=== PATIENT | female | born 1985 | race Caucasian/White ===

== ENCOUNTER 2019-11-26 23:19 | Emergency (ER) | payer OTHER ==
[2019-11-26 23:24] VITALS: BP 129/82; PULSE 85; RESP 20; TEMP 98.4
--- NOTE | 2019-11-27 00:27 | ED ---
General Adult HPI - General Chief complaint: Needlestick/Exposure Stated complaint: Needle stick at work Time Seen by Provider: 11/26/19 23:34 Source: patient Mode of arrival: ambulatory Limitations: no limitations - History of Present Illness Initial comments: Patient is a 34-year-old female presenting to emergency Department with a chief complaint of a needle stick exposure. 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 Patient reports the source is known. Patient reports that needlestick location was on her right thumb. Patient states that she immediately began washing the site and was pushing blood out. Patient is unaware if she had had the vaccinations. - Related Data Home Medications Medication Instructions Recorded Confirmed buPROPion [Wellbutrin] 100 mg PO BID 11/26/19 11/26/19 Allergies Allergy/AdvReac Type Severity Reaction Status Date / Time No Known Allergies Allergy Verified 11/26/19 23:25 Review of Systems ROS Statement: Those systems with pertinent positive or pertinent negative responses have been documented in the HPI. ROS Other: All systems not noted in ROS Statement are negative. Past Medical History Past Medical History: Asthma Additional Past Medical History / Comment(s): migraines History of Any Multi-Drug Resistant Organisms: None Reported Past Surgical History: Orthopedic Surgery Past Psychological History: Depression Smoking Status: Current every day smoker Past Alcohol Use History: None Reported Past Drug Use History: None Reported General Exam Limitations: no limitations General appearance: alert, in no apparent distress Head exam: Present: atraumatic, normocephalic, normal inspection Eye exam: Present: normal appearance, PERRL, EOMI Pupils: Present: normal accommodation ENT exam: Present: normal exam Neck exam: Present: normal inspection, full ROM Respiratory exam: Present: normal lung sounds bilaterally Cardiovascular Exam: Present: regular rate, normal rhythm, normal heart sounds Extremities exam: Present: normal inspection (Needle stick exposure to the right thumb. No active bleeding at this time.) Back exam: Present: normal inspection, full ROM Neurological exam: Present: alert, oriented X3 Psychiatric exam: Present: normal affect, normal mood Skin exam: Present: warm, dry, intact, normal color Course Vital Signs 11/26/19 23:22 Temperature 98.4 F Pulse Rate 85 Respiratory 20 Rate Blood Pressure 129/82 O2 Sat by Pulse 100 Oximetry Medical Decision Making - Medical Decision Making Patient is a 34-year-old female presenting to emergency Department with a chief complaint of needle stick exposure. Signed out testing for HIV and hepatitis for sent out. Patient will be contacted in about 3 days with the results. Patient is unaware if she had her hepatitis vaccinations. Strict return parameters were thoroughly discussed with patient is understanding and agreeable. Case discussed with physician. Disposition Clinical Impression: Needlestick injury accident with exposure to body fluid Disposition: HOME SELF-CARE Condition: Stable Instructions (If sedation given, give patient instructions): Hepatitis B (DC) Additional Instructions: You will be contacted in 3 days with the results of the testing. Please return to emergency department if symptoms worsen. Is patient prescribed a controlled substance at d/c from ED?: No Referrals: David Vicente MD [Primary Care Provider] - 1-2 days Time of Disposition: 00:31
[2019-11-27 11:53] LABS: Hepatitis B Surface AB- Quant 502.6 mIU/mL; Hepatitis B Surface Antibody Reactive (Non-Reactive); Hepatitis B Surface Antigen Non-Reactive (Non-Reactive); Hepatitis C IgG Antibody Non-Reactive (Non-Reactive)
[2019-11-27 12:51] LABS: HIV 1 AB Non-Reactive (Non-Reactive); HIV 2 AB Non-Reactive (Non-Reactive); HIV AB P24 Non-Reactive (Non-Reactive); HIV P24 AG Non-Reactive (Non-Reactive)
== END 2019-11-27 00:42 | disposition home or self-care (01) ==
LOC: EC 23:19
DX: Z77.21 Contact with and (suspected) exposure to potentially hazardous body fluids (principal); F32.9 Major depressive disorder, single episode, unspecified; F17.200 Nicotine dependence, unspecified, uncomplicated; Z79.899 Other long term (current) drug therapy; W46.0XXA Contact with hypodermic needle, initial encounter; Y99.0 Civilian activity done for income or pay
CPT/HCPCS: 36415; 86706; 86803; 87340; 87390; 99283

== ENCOUNTER 2022-02-17 09:25 | Inpatient (IN) | payer OTHER ==
[2022-02-17] MEDS ORDERED: SODIUM CHLORIDE 0.9% 1,000 ML IV STA (10:08)
[2022-02-17 10:17] LABS: Glucose,Whole Blood 85 mg/dL (75-99)
--- NOTE | 2022-02-17 10:51 | XR ---
EXAMINATION TYPE: XR chest 2V DATE OF EXAM: 02/17/2022 COMPARISON: NONE HISTORY: Altered mental status, left-sided facial numbness and slurred speech TECHNIQUE: Frontal and lateral views of the chest are obtained. FINDINGS: There is no focal air space opacity, pleural effusion, or pneumothorax seen. The cardiac silhouette size is within normal limits. The osseous structures are intact. IMPRESSION: No acute cardiopulmonary process.
--- NOTE | 2022-02-17 10:56 | CT ---
EXAMINATION TYPE: CT brain wo con for TPA DATE OF EXAM: 02/17/2022 COMPARISON: CT brain 08/25/2016 HISTORY: slurred speech and left side weakness. CT DLP: 1085 mGycm Automated exposure control for dose reduction was used. Helical imaging through the brain FINDINGS: There is no acute intracranial hemorrhage, mass effect, or midline shift identified. Brain density is remarkable for interval development of low-attenuation within the level of the left frontal white ma tter, ill-defined area of low-attenuation has developed. Some vague periventricular low density is ag ain noted in the right occipital lobe and also in the periventricular right matter on the right. The ventricles and sulci are within normal limits in size. The globes are intact and the visualized sinu ses are clear. IMPRESSION: Interval development of abnormal low attenuation in the left frontal white matter, correlate for poss ible demyelinating disease or ischemic event, brain MRI likely would be of benefit.
[2022-02-17 10:57] LABS: Basophils % (A) 1 %; Eosinophils # (A) 0.1 k/uL (0-0.7); Eosinophils % (A) 2 %; HCT 38.9 % (34.0-46.0); HGB 13.2 gm/dL (11.4-16.0); Lymphocytes # (A) 1.7 k/uL (1.0-4.8); Lymphocytes % (A) 37 %; MCH 33.5 pg (25.0-35.0); MCHC 33.9 g/dL (31.0-37.0); MCV 98.9 fL (80.0-100.0); Mean Platelet Volume 8.6; Monocytes # (A) 0.3 k/uL (0-1.0); Monocytes % (A) 6 %; Neutrophils # (A) 2.4 k/uL (1.3-7.7); Neutrophils % (A) 53 %; Platelet Count 183 k/uL (150-450); RBC 3.94 m/uL (3.80-5.40); RDW 12.8 % (11.5-15.5); WBC 4.6 k/uL (3.8-10.6)
[2022-02-17 11:02] LABS: Appearance,Urine Clear (Clear); Bilirubin,Urine Negative (Negative); Blood,Urine Negative (Negative); Color,Urine Light Yellow; Glucose,Urine (UA) Negative (Negative); Ketones,Urine Negative (Negative); Leukocyte Esterase,Urine Negative (Negative); Nitrite,Urine Negative (Negative); PH, Urine 7.5 (5.0-8.0); Protein,Urine Negative (Negative); Specific Gravity,Urine 1.005 (1.001-1.035); Urobilinogen,Urine <2.0 mg/dL (<2.0)
--- NOTE | 2022-02-17 11:07 | CT ---
EXAMINATION TYPE: CT angio head neck DATE OF EXAM: 02/17/2022 COMPARISON: Head CT and a HISTORY: 36-year-old female slurred speech and left sided weakness TECHNIQUE: Contiguous axial scanning of the head and neck performed with IV Contrast, patient injecte d with 65mL mL of Isovue 370. Coronal/sagittal MIP reconstructions performed. CT DLP: 342.5 mGycm Automated exposure control for dose reduction was used. FINDINGS: NECK: Conventional arch vessel branching anatomy. Dense contrast limits evaluation of the V1 segment right vertebral artery. Otherwise, the vertebral a rteries are codominant patent throughout the course. Right common and right internal carotid arteries are widely patent by NASCET criteria. Left common and left internal carotid arteries are widely patent by NASCET criteria. HEAD: Somewhat small caliber to the bilateral vertebral and basilar arteries. Bilateral posterior communica ting arteries are visualized in posterior circulation is patent. Dural venous sinuses are patent. Internal carotid arteries and remainder of the anterior circulation is patent. No aneurysmal change is seen. IMPRESSION: 1. NECK: WIDELY PATENT CAROTID AND VERTEBRAL ARTERIES OF THE NECK. 2. 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 OTHERWISE, NO LARGE VESSEL INTRACRANIAL ARTERIAL OCCLUSION, SIGNIFICANT STENOSIS, OR ANEURYSMAL FRANCES NGE IS SEEN.
[2022-02-17 11:12] LABS: Prothrombin Time 10.6 sec (9.0-12.0)
[2022-02-17 11:15] LABS: ALT 11 U/L (4-34); AST 18 U/L (14-36); African American GFR (CKD) >90 (>60 ml/min/1.73 sqM); Albumin 3.7 g/dL (3.5-5.0); Alkaline Phosphatase 52 U/L (38-126); Anion Gap 7 mmol/L; Blood Urea Nitrogen 14 mg/dL (7-17); Calcium 8.7 mg/dL (8.4-10.2); Carbon Dioxide 25 mmol/L (22-30); Chloride 106 mmol/L (98-107); Glucose 80 mg/dL (74-99); Non-African American GFR(CKD) >90 (>60 ml/min/1.73 sqM); Potassium 4.4 mmol/L (3.5-5.1); Sodium 138 mmol/L (137-145); Total Bilirubin 0.6 mg/dL (0.2-1.3); Total Protein 6.5 g/dL (6.3-8.2)
[2022-02-17 11:16] LABS: Amphetamine Screen,Urine Not Detected (NotDetected); Barbiturate Screen,Urine Not Detected (NotDetected); Benzodiazepines Screen,Urine Not Detected (NotDetected); Cocaine Screen,Urine Not Detected (NotDetected); Methadone Screen, Urine Not Detected (NotDetected); Opiate Screen,Urine Not Detected (NotDetected); Oxycodone Screen, Urine Not Detected (NotDetected); Phencyclidine Screen,Urine Not Detected (NotDetected); Tricyclic Antidepressant,Urine Not Detected (NotDetected); Urn Cannabinoid Scrn Not Detected (NotDetected)
[2022-02-17] MEDS ORDERED: ASPIRIN 325 MG TAB PO STA (12:05)
--- NOTE | 2022-02-17 12:58 | ED ---
General Adult HPI - General Chief complaint: Neuro Symptoms/Deficit Stated complaint: Lt side weakness/slurred speech Time Seen by Provider: 02/17/22 09:38 Source: patient, RN notes reviewed, old records reviewed Mode of arrival: ambulatory Limitations: no limitations - History of Present Illness Initial comments: Patient is a 36-year-old female with past medical history remarkable for asthma who presents emergency Department complaining of neurological deficits. Patient states that beginning Monday, she began having slurred speech as well as left- sided lower facial droop. She is having symptoms recur on and off since summertime. Remotely, patient was being worked up for MS, but states she did not complete the workup. She is drooling, and states she is having a difficult time swallowing as well. Has no other acute complaints at this time. Denies chest pain, shortness breath, abdominal pain, nausea, vomiting. His no other acute point at this time. - Related Data Home Medications Medication Instructions Recorded Confirmed Rosanil Cleanser 1 applic TOPICAL DAILY 02/17/22 02/17/22 buPROPion HCL [Forfivo Xl] 450 mg PO DAILY 02/17/22 02/17/22 metroNIDAZOLE 0.75% CREAM 1 applic TOPICAL BID PRN 02/17/22 02/17/22 [Metrocream 0.75%] Allergies Allergy/AdvReac Type Severity Reaction Status Date / Time No Known Allergies Allergy Verified 02/17/22 10:14 Review of Systems ROS Statement: Those systems with pertinent positive or pertinent negative responses have been documented in the HPI. Review of Systems: CONST: Denies fever EYES: Denies blurry vision ENT: Denies nasal congestion C/V: Denies Chest pain RESP: Denies shortness of breath GI: Denies abdominal pain : Denies dysuria SKIN: Denies rash. MSK: Denies joint pain. NEURO: Denies headache ROS Other: All systems not noted in ROS Statement are negative. Past Medical History Past Medical History: Asthma Additional Past Medical History / Comment(s): migraines History of Any Multi-Drug Resistant Organisms: None Reported Past Surgical History: Orthopedic Surgery Past Psychological History: Depression Smoking Status: Current every day smoker, Vaper Past Alcohol Use History: None Reported Past Drug Use History: None Reported General Exam - General Exam Comments Initial Comments: General: Appears in no acute distress. HEAD: Normal with no signs of head trauma. EYES: PERRLA, EOMI, conjunctiva normal, no discharge. Pupils 3 mm and equal bilaterally. ENT: Hearing grossly intact, normal oropharynx. RESPIRATORY: Clear breath sounds bilaterally. No wheezes, rales, or rhonchi. C/V: Regular rate and rhythm. S1 and S2 auscultated, no edema, peripheral pulses 2+ and intact throughout ABD: Abd is soft, nontender, nondistended EXT: Normal range of motion, no obvious deformity SKIN: No rashes or lesions observed on exposed skin. NEURO: Alert and oriented 4. NIH is 3, 2 points for left lower facial droop, 1 point for dysarthria. GCS is 15. No other focal deficits. Limitations: no limitations Course Vital Signs 02/17/22 02/17/22 02/17/22 09:30 10:07 11:54 Temperature 97.9 F Pulse Rate 78 77 61 Respiratory 18 18 18 Rate Blood Pressure 113/78 107/67 115/72 O2 Sat by Pulse 100 100 99 Oximetry 02/17/22 13:03 Temperature Pulse Rate 74 Respiratory 18 Rate Blood Pressure 111/71 O2 Sat by Pulse 99 Oximetry Medical Decision Making - Medical Decision Making Based on the patient's presentation and physical exam, I am concerned for the neurological etiology for her current symptoms. Cannot rule out CVA versus MS at this time. There have been ongoing for multiple days, greater than 24 hours. We will obtain the stroke imaging no activation of the stroke pager will be made. She was in agreement this plan. She will likely be admitted.Patient is not a TPA candidate as it has been multiple days since onset of symptoms. Laboratory studies are unremarkable including a indeterminate troponin. Chest x-ray shows no acute cardio primary process. CT brain reveals findings concerning for possible demyelinating disease in the left frontal white matter. CT angiogram revealed no acute intracranial process. No stenosis. EKG showed no signs of acute ischemia. On reevaluation, the patient remains unchanged. I updated her on the results of her labs and imaging. I would like to administer the patient aspirin, as well as have her admitted for neurology evaluation likely MRI. She was in agreement this plan. I did speak with Dr. Stone of neurology who agreed to the consult with the plan. Patient normally would be admitted to observation based on her presenting clinical diagnosis. Patient's PCP admits to EMS normally, however patient will be admitted to [place] [facility] physician group due to the observation admission. I did speak with the [place] [facility] physician, Dr. Lucero who refused the admission as he believes that the patient will likely be her greater than 2 days due to concern for MS and likely MS flare. He recommended inpatient admission. Therefore I did speak with [facility], Dr. allison who did accept the patient. Patient was still admitted to observation at this time. - Lab Data Result diagrams: 02/17/22 10:11 02/17/22 10:11 Lab Results 02/17/22 02/17/22 02/17/22 Range/Units 10:06 10:11 10:11 WBC 4.6 (3.8-10.6) k/uL RBC 3.94 (3.80-5.40) m/uL Hgb 13.2 (11.4-16.0) gm/dL Hct 38.9 (34.0-46.0) % MCV 98.9 (80.0-100.0) fL MCH 33.5 (25.0-35.0) pg MCHC 33.9 (31.0-37.0) g/dL RDW 12.8 (11.5-15.5) % Plt Count 183 (150-450) k/uL MPV 8.6 Neutrophils % 53 % Lymphocytes % 37 % Monocytes % 6 % Eosinophils % 2 % Basophils % 1 % Neutrophils # 2.4 (1.3-7.7) k/uL Lymphocytes # 1.7 (1.0-4.8) k/uL Monocytes # 0.3 (0-1.0) k/uL Eosinophils # 0.1 (0-0.7) k/uL Basophils # 0.0 (0-0.2) k/uL PT 10.6 (9.0-12.0) sec INR 1.0 (<1.2) APTT 27.0 (22.0-30.0) sec Sodium (137-145) mmol/L Potassium (3.5-5.1) mmol/L Chloride (98-107) mmol/L Carbon Dioxide (22-30) mmol/L Anion Gap mmol/L BUN (7-17) mg/dL Creatinine (0.52-1.04) mg/dL Est GFR (CKD-EPI)AfAm (>60 ml/min/1.73 sqM) Est GFR (CKD-EPI)NonAf (>60 ml/min/1.73 sqM) Glucose (74-99) mg/dL POC Glucose (mg/dL) 85 (75-99) mg/dL POC Glu [employer] [place] Calcium (8.4-10.2) mg/dL Total Bilirubin (0.2-1.3) mg/dL AST (14-36) U/L ALT (4-34) U/L Alkaline Phosphatase (38-126) U/L Troponin I (0.000-0.034) ng/mL Total Protein (6.3-8.2) g/dL Albumin (3.5-5.0) g/dL Urine Color Urine Appearance (Clear) Urine pH (5.0-8.0) Ur Specific [place] (1.001-1.035) Urine Protein (Negative) Urine Glucose (UA) (Negative) Urine Ketones (Negative) Urine Blood (Negative) Urine Nitrite (Negative) Urine Bilirubin (Negative) Urine Urobilinogen (<2.0) mg/dL Ur Leukocyte Esterase (Negative) Urine HCG, Qual (Not Detectd) Urine Opiates Screen (NotDetected) Ur Oxycodone Screen (NotDetected) Urine Methadone Screen (NotDetected) Ur Propoxyphene Screen (NotDetected) Ur Barbiturates Screen (NotDetected) U Tricyclic Antidepress (NotDetected) Ur Phencyclidine Scrn (NotDetected) Ur Amphetamines Screen (NotDetected) U Methamphetamines Scrn (NotDetected) U Benzodiazepines Scrn (NotDetected) Urine Cocaine Screen (NotDetected) U Marijuana (THC) Screen (NotDetected) 02/17/22 02/17/22 02/17/22 Range/Units 10:11 10:11 10:11 WBC (3.8-10.6) k/uL RBC (3.80-5.40) m/uL Hgb (11.4-16.0) gm/dL Hct (34.0-46.0) % MCV (80.0-100.0) fL MCH (25.0-35.0) pg MCHC (31.0-37.0) g/dL RDW (11.5-15.5) % Plt Count (150-450) k/uL MPV Neutrophils % % Lymphocytes % % Monocytes % % Eosinophils % % Basophils % % Neutrophils # (1.3-7.7) k/uL Lymphocytes # (1.0-4.8) k/uL Monocytes # (0-1.0) k/uL Eosinophils # (0-0.7) k/uL Basophils # (0-0.2) k/uL PT (9.0-12.0) sec INR (<1.2) APTT (22.0-30.0) sec Sodium 138 (137-145) mmol/L Potassium 4.4 (3.5-5.1) mmol/L Chloride 106 (98-107) mmol/L Carbon Dioxide 25 (22-30) mmol/L Anion Gap 7 mmol/L BUN 14 (7-17) mg/dL Creatinine 0.75 (0.52-1.04) mg/dL Est GFR (CKD-EPI)AfAm >90 (>60 ml/min/1.73 sqM) Est GFR (CKD-EPI)NonAf >90 (>60 ml/min/1.73 sqM) Glucose 80 (74-99) mg/dL POC Glucose (mg/dL) (75-99) mg/dL POC Glu [employer] ID Calcium 8.7 (8.4-10.2) mg/dL Total Bilirubin 0.6 (0.2-1.3) mg/dL AST 18 (14-36) U/L ALT 11 (4-34) U/L Alkaline Phosphatase 52 (38-126) U/L Troponin I (0.000-0.034) ng/mL Total Protein 6.5 (6.3-8.2) g/dL Albumin 3.7 (3.5-5.0) g/dL Urine Color Light Yellow Urine Appearance Clear (Clear) Urine pH 7.5 (5.0-8.0) Ur Specific [place] 1.005 (1.001-1.035) Urine Protein Negative (Negative) Urine Glucose (UA) Negative (Negative) Urine Ketones Negative (Negative) Urine Blood Negative (Negative) Urine Nitrite Negative (Negative) Urine Bilirubin Negative (Negative) Urine Urobilinogen <2.0 (<2.0) mg/dL Ur Leukocyte Esterase Negative (Negative) Urine HCG, Qual Not Detected (Not Detectd) Urine Opiates Screen Not Detected (NotDetected) Ur Oxycodone Screen Not Detected (NotDetected) Urine Methadone Screen Not Detected (NotDetected) Ur Propoxyphene Screen Not Detected (NotDetected) Ur Barbiturates Screen Not Detected (NotDetected) U Tricyclic Antidepress Not Detected (NotDetected) Ur Phencyclidine Scrn Not Detected (NotDetected) Ur Amphetamines Screen Not Detected (NotDetected) U Methamphetamines Scrn Not Detected (NotDetected) U Benzodiazepines Scrn Not Detected (NotDetected) Urine Cocaine Screen Not Detected (NotDetected) U Marijuana (THC) Screen Not Detected (NotDetected) 02/17/22 Range/Units 10:11 WBC (3.8-10.6) k/uL RBC (3.80-5.40) m/uL Hgb (11.4-16.0) gm/dL Hct (34.0-46.0) % MCV (80.0-100.0) fL MCH (25.0-35.0) pg MCHC (31.0-37.0) g/dL RDW (11.5-15.5) % Plt Count (150-450) k/uL MPV Neutrophils % % Lymphocytes % % Monocytes % % Eosinophils % % Basophils % % Neutrophils # (1.3-7.7) k/uL Lymphocytes # (1.0-4.8) k/uL Monocytes # (0-1.0) k/uL Eosinophils # (0-0.7) k/uL Basophils # (0-0.2) k/uL PT (9.0-12.0) sec INR (<1.2) APTT (22.0-30.0) sec Sodium (137-145) mmol/L Potassium (3.5-5.1) mmol/L Chloride (98-107) mmol/L Carbon Dioxide (22-30) mmol/L Anion Gap mmol/L BUN (7-17) mg/dL Creatinine (0.52-1.04) mg/dL Est GFR (CKD-EPI)AfAm (>60 ml/min/1.73 sqM) Est GFR (CKD-EPI)NonAf (>60 ml/min/1.73 sqM) Glucose (74-99) mg/dL POC Glucose (mg/dL) (75-99) mg/dL POC Glu [employer] ID Calcium (8.4-10.2) mg/dL Total Bilirubin (0.2-1.3) mg/dL AST (14-36) U/L ALT (4-34) U/L Alkaline Phosphatase (38-126) U/L Troponin I 0.015 (0.000-0.034) ng/mL Total Protein (6.3-8.2) g/dL Albumin (3.5-5.0) g/dL Urine Color Urine Appearance (Clear) Urine pH (5.0-8.0) Ur Specific [place] (1.001-1.035) Urine Protein (Negative) Urine Glucose (UA) (Negative) Urine Ketones (Negative) Urine Blood (Negative) Urine Nitrite (Negative) Urine Bilirubin (Negative) Urine Urobilinogen (<2.0) mg/dL Ur Leukocyte Esterase (Negative) Urine HCG, Qual (Not Detectd) Urine Opiates Screen (NotDetected) Ur Oxycodone Screen (NotDetected) Urine Methadone Screen (NotDetected) Ur Propoxyphene Screen (NotDetected) Ur Barbiturates Screen (NotDetected) U Tricyclic Antidepress (NotDetected) Ur Phencyclidine Scrn (NotDetected) Ur Amphetamines Screen (NotDetected) U Methamphetamines Scrn (NotDetected) U Benzodiazepines Scrn (NotDetected) Urine Cocaine Screen (NotDetected) U Marijuana (THC) Screen (NotDetected) - EKG Data -: EKG Interpreted by Me EKG Comments: 12-lead Electrocardiogram Interpretation Note EKG was reviewed and interpreted by myself. 12-lead ECG performed at 0945 is interpreted by me as revealing normal sinus rhythm at a rate of 66 beats per minute. [place] is normal. [place] intervals 171 ms, QRS duration is 96 ms, QTc is 415 ms.. There were no ST or T wave abnormalities to suggest myocardial ischemia or injury. R wave progression across the precordium was satisfactory. By my interpretation this EKG is non-diagnostic for acute ischemia. Disposition Clinical Impression: Facial droop Narrative: CVA vs. MS flare Disposition: ADMITTED IP TO THIS HOSP Condition: Stable Time of Disposition: 11:54
--- NOTE | 2022-02-17 13:38 | P.HPIM ---
History of Present Illness This is a pleasant 36 years old female with past medical history of asthma and migraine, patient presents because of slurred speech that started 3-4 days ago, patient states this happened to her twice during the summer which resolved spontaneously after one month and one week respectively. Also she has difficulties swallowing her food with drooling some saliva. And she noticed that her lip also deviated to the right side. However patient denies headache, no dizziness, no weakness in one site, no numbness, no bolus problems but she states when she walks downstairs she has some difficulty keeping her bones. She has been seen neurologist many years ago and she was suspected to have MS but she did not follow through, at that time she has some issues with her legs. She denies chest pain or dyspnea. No fever. No change in urine or bowel habits. No dysuria or urgency. She just finished her menstrual cycle, I offered test but she declines. Vitals are stable and labs are unremarkable including CBC, BMP, liver enzymes, urine analysis, urine test, urine drug screen CT of the brain: Interval development of abnormal low attenuation in the left frontal white matter correlate for possible demyelinating disease or ischemic event. Brain MRI likely would be of benefit Chest x-ray: No acute process. CT angiography: Somewhat small caliber to the bilateral vertebral and basilar arteries. Bilateral posterior rectum indicating arteries are visualized and posterior circulation is patent. Dural sinuses are patent. Neck widely patent carotid and vertebral arteries of the neck. Review of Systems CONSTITUTIONAL: No fever, no malaise, no fatigue. HEENT: No recent visual problems or hearing problems. Denied any sore throat. CARDIOVASCULAR: No orthopnea, PND, no palpitations, no syncope. PULMONARY: No shortness of breath, no cough, no hemoptysis. GASTROINTESTINAL: No diarrhea, no nausea, no vomiting, no abdominal pain. Normoactive bowel sounds. NEUROLOGICAL: No headaches, no weakness, no numbness. HEMATOLOGICAL: Denies any bleeding or petechiae. GENITOURINARY: Denies any burning micturition, frequency, or urgency. MUSCULOSKELETAL/RHEUMATOLOGICAL: Denies any joint pain, swelling, or any muscle pain. ENDOCRINE: Denies any polyuria or polydipsia. Past Medical History Past Medical History: Asthma Additional Past Medical History / Comment(s): migraines History of Any Multi-Drug Resistant Organisms: None Reported Past Surgical History: Orthopedic Surgery Past Psychological History: Depression Smoking Status: Current every day smoker, Vaper Past Alcohol Use History: None Reported Past Drug Use History: None Reported Medications and Allergies Home Medications Medication Instructions Recorded Confirmed Type Rosanil Cleanser 1 applic TOPICAL DAILY 02/17/22 02/17/22 History buPROPion HCL [Forfivo Xl] 450 mg PO DAILY 02/17/22 02/17/22 History metroNIDAZOLE 0.75% CREAM 1 applic TOPICAL BID PRN 02/17/22 02/17/22 History [Metrocream 0.75%] Allergies Allergy/AdvReac Type Severity Reaction Status Date / Time No Known Allergies Allergy Verified 02/17/22 10:14 Physical Exam Vitals: Vital Signs Temp Pulse Resp BP Pulse Ox 02/17/22 13:03 74 18 111/71 99 02/17/22 11:54 61 18 115/72 99 02/17/22 10:07 77 18 107/67 100 02/17/22 09:30 97.9 F 78 18 113/78 100 Intake and Output 02/16/22 02/17/22 02/17/22 22:59 06:59 14:59 Other: Weight 56.699 kg GENERAL: The patient is alert and oriented x3, not in any acute distress. Well developed, well nourished. HEENT: Pupils are round and equally reacting to light. EOMI. No scleral icterus. No conjunctival pallor. Normocephalic, atraumatic. No pharyngeal erythema. No thyromegaly. CARDIOVASCULAR: S1 and S2 present. No murmurs, rubs, or gallops. PULMONARY: Chest is clear to auscultation, no wheezing or crackles. ABDOMEN: Soft, nontender, nondistended, normoactive bowel sounds. No palpable organomegaly. MUSCULOSKELETAL: No joint swelling or deformity. EXTREMITIES: No cyanosis, clubbing, or pedal edema. -NEUROLOGICAL: Critical nerves are grossly intact. She has mild deviation of the lower lip to the right side. Tongue and uvula midline. Motor is 5/5 and sensation is intact in all extremities. Meningeal signs are absent SKIN: No rashes. No petechiae Results CBC & Chem 7: 02/17/22 10:11 02/17/22 10:11 Assessment and Plan Assessment: Patient with slurred speech, difficulty swallowing and left lip/face weakness.CT of the brain: Interval development of abnormal low attenuation in the left frontal white matter correlate for possible demyelinating disease or ischemic e vent. Nicotine dependence patient counseled to quit and she agrees. She declines nicotine patch History of migraine History of asthma, not active tissue Plan: This Is a pleasant 36 years old female who presents with new neurological symptoms suspicious for stroke versus demyelinating disease Continue with neuro check Neurology consult Further testing per neurology service Continue with speech evaluation and PT/OT Labs and medication were reviewed.. Continue same treatment. Continue with symptomatic treatment. Resume home medication. Monitor lytes and vitals. DVT and GI prophylaxis. Further recommendations depends on the clinical course of the patient DVT prophylaxis: Mechanical GI Prophylaxis: Pepcid PT/OT: Pending Prognosis is guarded
--- NOTE | 2022-02-17 17:56 | P.CNNES ---
History of Present Illness Consult date: 02/17/22 Requesting physician: David Barnett Reason for Consult: CVA versus demyelinating disease History of Present Illness: Patient is a 36-year-old right-handed female who came to the hospital because of developing slurred speech on Monday, 2 days ago. Yesterday on Monday she noticed difficulty swallowing. She was noticing that she was drooling out of left side of the mouth. Also noticed that her left lower lip was not moving as it usually does. She also protruded her tongue and it was deviating to the left. She got concerned therefore decided to come to the hospital, and arrived in the ER at 9:25 AM today. Patient also has noticed that she often smiles when she does not intend to smile. On arrival her blood pressure was 113/78, pulse is 70 temperature 97.9. Blood test shows normal CBC, PT/PTT, normal CMP. Troponin negative. UA negative, urine drug screen negative. HCG negative. Computed tomography scan of head showed interval development of abnormal low attenuation in the left frontal whit e matter, correlate for possible demyelinating disease or ischemic event. MRI brain would be of benefit. I personally reviewed computed tomography scan of the head and agree with the findings. The lesion appears somewhat chronic in nature. CTA of the neck showed widely patent carotid and vertebral arteries of the neck. CTA of the head showed somewhat small caliber to the bilateral vertebral and basilar arteries on a congenital basis. Otherwise no large vessel intracranial arterial occlusion, significant stenosis or aneurysmal change. EKG shows normal sinus rhythm. Chest x-ray with no acute cardiac pulmonary process. Patient further states that last summer she had an episodes in which she had slurred speech, that lasted for about 1 month. She had another episode of slurred speech in late fall, that lasted for a week. She did not seek medical attention, felt was stress related or lack of sleep or dehydration. Patient states that in about 10/2014 she saw a neurologist and there was some concern of MS. Patient never followed through with a neurologist. Patient denies any symptoms related to her extremities. Patient states that for last 1 year she feels her legs are getting weak, shaky when she is going downstairs. She feels as if her legs would go out, knee or ankle would give out. It involves both legs, but left is worse. Denies any history of vertigo, or loss of vision. Patient does have history of migraines since she was age 19. They used to occur once a month, associated with aura consisting of blurred vision for about 20 minutes to an hour. The migraine would last all day. She gets nausea, occasional vomiting. She does get light and noise sensitivity with her migraine. Patient denies any history of optic neuritis. Patient admits to having not good balance for a long time, but has become slightly worse in the last couple years. No falls. Patient denies any family history of MS. Patient has smoked half pack per day since age 15. She denies hypertension or diabetes or any alcohol use. Patient does not take any control pills. She has 2 children. She also Vapes. Review of Systems As mentioned above in HPI. All other 14 point review systems are reviewed and unremarkable. Past Medical History Past Medical History: Asthma Additional Past Medical History / Comment(s): migraines History of Any Multi-Drug Resistant Organisms: None Reported Past Surgical History: Orthopedic Surgery Past Psychological History: Depression Smoking Status: Current every day smoker, Vaper Past Alcohol Use History: None Reported Past Drug Use History: None Reported Medications and Allergies Home Medications Medication Instructions Recorded Confirmed Type Rosanil Cleanser 1 applic TOPICAL DAILY 02/17/22 02/17/22 History buPROPion HCL [Forfivo Xl] 450 mg PO DAILY 02/17/22 02/17/22 History metroNIDAZOLE 0.75% CREAM 1 applic TOPICAL BID PRN 02/17/22 02/17/22 History [Metrocream 0.75%] Allergies Allergy/AdvReac Type Severity Reaction Status Date / Time No Known Allergies Allergy Verified 02/17/22 10:14 Physical Examination - Vital Signs Vital Signs: Vital Signs Temp Pulse Resp BP Pulse Ox 02/17/22 16:03 67 18 97 02/17/22 15:03 68 18 116/77 98 02/17/22 14:03 71 18 105/76 99 02/17/22 13:03 74 18 111/71 99 02/17/22 11:54 61 18 115/72 99 02/17/22 10:07 77 18 107/67 100 02/17/22 09:30 97.9 F 78 18 113/78 100 Intake and Output 02/17/22 02/17/22 02/17/22 06:59 14:59 22:59 Other: Weight 56.699 kg Patient is a young female, in no acute distress. Patient is alert awake oriented to time place and person. Speech is very mildly dysarthric and language functions are normal. Patient can name and repeat very well. Attention, concentration and fund of knowledge is adequate. On cranial examination, pupils are equal, round and reacting to light, visual manzano are full on confrontation, extraocular muscles are intact with no nystagmus. Patient has left facial weakness, central type. Her tongue protrudes slightly to the left. The strength of the tongue under the cheek however was equal on either side. Palatal elevation and sensation normal, hearing and shoulder shrug normal, facial sensation normal. Shoulder shrug normal. On muscle strength testing, there is no pronator drift and the strength is n ormal in arms and legs distally and proximally. Deep tendon reflexes are symmetric, 2 at the biceps and brachioradialis, 2+ to 3 at the knees, 2 ankles and plantars downgoing bilaterally. Sensory to touch is equal with no neglect. Cerebellar function showed no ataxia for rznjgi-wh-wtum testing. No ataxia for nngi-ju-mxdl testing. No dysdiadochokinesia. Tone and bulk of muscles normal. Gait deferred. On general examination, there is no carotid bruit or murmur, S1-S2 audible. Abdomen is soft nontender. No organomegaly, bowel sounds present. Chest is clear. Peripheral pulses are present. No edema. Results - Laboratory Findings CBC and BMP: 02/17/22 10:11 02/17/22 10:11 Assessment and Plan Assessment: * 36-year-old female presented with 2 day history of slurred speech and 1 day history of mild dysphagia and drooling. Patient had similar episode of slurred speech twice in the past, once lasting for a month and another time lasted for a week. Examination revealed mild left facial weakness, central type and slight tongue deviation to the left. Computed tomography scan of the head revealed a chronic white matter lesion in the left frontal region. This is likely not the cause of current symptoms, as the symptoms are on the ipsilateral side. Rule out MS, CVA appears less likely. Guillory's Palsy less likely. * Tobacco use * History of migraine headaches Plan: * MRI of the brain with and without contrast rule out MS. Rule out CVA. * Detailed blood tests as per order section. * Patient has received aspirin 325 mg in the ER. * Recommended tobacco cessation. * Telemetry monitoring. * Further management based upon above test results. * We will follow. Thank you for the consult.
--- NOTE | 2022-02-18 07:49 | P.PN ---
Subjective This is a pleasant 36 years old female with past medical history of asthma and migraine, patient presents because of slurred speech that started 3-4 days ago, patient states this happened to her twice during the summer which resolved spontaneously after one month and one week respectively. Also she has difficulties swallowing her food with drooling some saliva. And she noticed that her lip also deviated to the right side. However patient denies headache, no dizziness, no weakness in one site, no numbness, no bolus problems but she states when she walks downstairs she has some difficulty keeping her bones. She has been seen neurologist many years ago and she was suspected to have MS but she did not follow through, at that time she has some issues with her legs. She denies chest pain or dyspnea. No fever. No change in urine or bowel fajardo bits. No dysuria or urgency. She just finished her menstrual cycle, I offered test but she declines. Vitals are stable and labs are unremarkable including CBC, BMP, liver enzymes, urine analysis, urine test, urine drug screen CT of the brain: Interval development of abnormal low attenuation in the left frontal white matter correlate for possible demyelinating disease or ischemic event. Brain MRI likely would be of benefit Chest x-ray: No acute process. CT angiography: Somewhat small caliber to the bilateral vertebral and basilar arteries. Bilateral posterior rectum indicating arteries are visualized and posterior circulation is patent. Dural sinuses are patent. Neck widely patent carotid and vertebral arteries of the neck. 02/18/2022 Patient still has the same symptoms of slurred speech and left facial droop and difficulty swallowing last night. No other neurological deficits. No other complaint. Medically stable. Blood tests ordered by neurologist still pending. MRI of the brain is pending. Patient states she is not claustrophobic Objective - Vital Signs Vital signs: Vital Signs Temp 98.4 F 02/18/22 04:21 Pulse 69 02/18/22 04:21 Resp 16 02/18/22 04:21 BP 102/52 02/18/22 04:21 Pulse Ox 97 02/18/22 04:21 Intake & Output 02/17/22 02/18/22 02/18/22 18:59 06:59 18:59 Weight 56.699 kg Other: Voiding Method Toilet # Voids 1 - Exam GENERAL: The patient is alert and oriented x3, not in any acute distress. Well developed, well nourished. HEENT: Pupils are round and equally reacting to light. EOMI. No scleral icterus. No conjunctival pallor. Normocephalic, atraumatic. No pharyngeal erythema. No thyromegaly. CARDIOVASCULAR: S1 and S2 present. No murmurs, rubs, or gallops. PULMONARY: Chest is clear to auscultation, no wheezing or crackles. ABDOMEN: Soft, nontender, nondistended, normoactive bowel sounds. No palpable organomegaly. MUSCULOSKELETAL: No joint swelling or deformity. EXTREMITIES: No cyanosis, clubbing, or pedal edema. -NEUROLOGICAL: Critical nerves are grossly intact. She has mild deviation of the lower lip to the right side. Tongue and uvula midline. Motor is 5/5 and sensation is intact in all extremities. Meningeal signs are absent SKIN: No rashes. No petechiae - Labs CBC & Chem 7: 02/17/22 10:11 02/17/22 10:11 Labs: Abnormal Lab Results - Last 24 Hours (Table) 02/17/22 Range/Units 10:10 Procalcitonin <0.02 L (0.02-0.09) ng/mL Assessment and Plan Assessment: Patient with slurred speech, difficulty swallowing and left lip/face weakness.CT of the brain: Interval development of abnormal low attenuation in the left frontal white matter correlate for possible demyelinating disease or ischemic event. Nicotine dependence patient counseled to quit and she agrees. She declines nicotine patch History of migraine History of asthma, not active tissue Plan: This Is a pleasant 36 years old female who presents with new neurological symptoms suspicious for stroke versus demyelinating disease Continue with neuro check Neurology consult recommended MRI of the brain and blood test, see lab section Continue with speech evaluation and PT/OT Labs and medication were reviewed.. Continue same treatment. Continue with symptomatic treatment. Resume home medication. Monitor lytes and vitals. DVT and GI prophylaxis. Further recommendations depends on the clinical course of the patient DVT prophylaxis: Mechanical GI Prophylaxis: Pepcid PT/OT: Pending Prognosis is guarded
[2022-02-18] MEDS: HEPARIN SODIUM,PORCINE/PF 5,000 UNIT/0.5 ML SYRINGE SQ SCH ×2 (08:25→20:11)
[2022-02-18] MEDS: buPROPion XL 150 MG TAB.ER.24H PO SCH (08:25)
[2022-02-18] MEDS ORDERED: FAMOTIDINE 20 MG/2 ML VIAL IV SCH (09:00)
--- NOTE | 2022-02-18 15:14 | MR ---
EXAMINATION TYPE: MR brain wo/w con DATE OF EXAM: 02/18/2022 COMPARISON: CT dated 02/17/2022 HISTORY: CVA vs MS, dysarthria and dysphagia TECHNIQUE: Multiplanar, multisequence images of the brain and brainstem is performed without and with IV contras t, utilizing 6 mL intravenous Gadavist . FINDINGS: Scattered bilateral cerebral periventricular and subcortical white matter foci of bright T2 and FLAIR signal, mainly seen perpendicular to the lateral ventricles giving a Weber's fingers appearance. Th e largest is seen in the right murdock radiata measuring up to 2.1 cm with bright diffusion signal and incomplete ring enhancement in the postcontrast images. No definite juxtacortical, corpus callosum o r infratentorial lesion identified No intracranial hemorrhage or acute infarct. No midline shift, ventriculomegaly or herniation. Unrema rkable rey-white matter differentiation, basal cisterns, sella and CP angles. No gross space-occupyi ng lesion, vasogenic edema or mass effect. Preserved signal void pattern of major intracranial vessels with slightly small basilar artery. Paten t major intracranial vessels. No other area of intracranial abnormal enhancement. Unremarkable orbits . Clear visualized paranasal sinuses and mastoid air cells. Unremarkable calvarial bones IMPRESSION: Considering the patient's age and presentation, the above-described findings are highly suggestive of a demyelinating disease like multiple sclerosis with active lesion in the right murdock radiata as de scribed above. Atypical demyelinating disease cannot be excluded. Recommend clinical correlation, neurology consulta tion and further workup. Further MRI of the spinal cord should be also considered.
[2022-02-18 16:39] LABS: Chol/HDL Ratio 2.46 Ratio; LDL Cholesterol,Calculated 89.1 mg/dL (0.0-131.0); VLDL Calculation 14.26 mg/dL (5.00-40.00)
[2022-02-18] MEDS: CYANOCOBALAMIN 1,000 MCG/ML 1 ML VIAL IM SCH (18:13)
[2022-02-18] MEDS: methylPREDNISolone SOD SUCCIN 1,000 MG in SODIUM CHLORIDE 0.9% 250 ML IVPB SCH (18:13)
[2022-02-18] MEDS: CHOLECALCIFEROL 125 MCG (5000 IU) TABLET PO SCH (18:13)
[2022-02-18] MEDS: FAMOTIDINE 20 MG TAB PO SCH (20:11)
[2022-02-18] MEDS: ACETAMINOPHEN TAB 325 MG TAB PO PRN (23:17)
[2022-02-19] MEDS: HEPARIN SODIUM,PORCINE/PF 5,000 UNIT/0.5 ML SYRINGE SQ SCH ×2 (08:26→20:17)
[2022-02-19] MEDS: CYANOCOBALAMIN 1,000 MCG/ML 1 ML VIAL IM SCH (08:26)
[2022-02-19] MEDS: FAMOTIDINE 20 MG TAB PO SCH ×2 (08:27→20:17)
[2022-02-19] MEDS: CHOLECALCIFEROL 125 MCG (5000 IU) TABLET PO SCH (08:27)
[2022-02-19] MEDS: buPROPion XL 150 MG TAB.ER.24H PO SCH (08:28)
[2022-02-19] MEDS: ACETAMINOPHEN TAB 325 MG TAB PO PRN (09:00)
--- NOTE | 2022-02-19 09:40 | P.PN ---
Subjective Progress Note Date: 02/18/22 Patient was seen for follow-up. Patient feels her symptoms are slightly getting worse. Patient feels the left lower lip is getting slightly more crooked. No other neurological symptoms. No symptoms attributed to the extremities. Telemetric monitoring showing sinus rhythm, sinus bradycardia between 40s to 100 range. Objective - Vital Signs Vital signs: Vital Signs Temp 98.2 F 02/19/22 08:00 Pulse 72 02/19/22 08:00 Resp 16 02/19/22 08:00 BP 113/71 02/19/22 08:00 Pulse Ox 95 02/19/22 08:00 Intake & Output 02/18/22 02/19/22 02/19/22 18:59 06:59 18:59 Intake Total 1380 118 Balance 1380 118 Intake: Oral 1380 118 Other: # Voids 1 - Exam Patient is a young female, in no acute distress. Patient is alert awake oriented to time place and person. Speech is very mildly dysarthric and language functions are normal. Patient can name and repeat very well. Attention, concentration and fund of knowledge is adequate. On cranial examination, pupils are equal, round and reacting to light, visual manzano are full on confrontation, extraocular muscles are intact with no nystagmus. Patient has left facial weakness, central type, which is predominantly involving the left lower lip region. Her tongue protrudes slightly to the left (appears slightly worse). The strength of the tongue under the cheek however was equal on either side. Palatal elevation and sensation normal, hearing and shoulder shrug normal. Facial sensation decreased for pinprick involving the all 3 region of the trigeminal nerve. However the fine touch is decreased only involving the left maxillary and mandibular region. Shoulder shrug normal. On muscle strength testing, there is no pronator drift and the strength is normal in arms and legs distally and proximally. Deep tendon reflexes are symmetric, 2 at the biceps and brachioradialis, 2+ to 3 at the knees, 2 ankles and plantars downgoing bilaterally. Sensory to touch is equal with no neglect. Cerebellar function showed no ataxia for mrjvji-fg-svpi testing. No ataxia for qsmt-uk-mdpi testing. No dysdiadochokinesia. Tone and bulk of muscles normal. Gait deferred. On general examination, there is no carotid bruit or murmur, S1-S2 audible. Abdomen is soft nontender. No organomegaly, bowel sounds present. Chest is clear. Peripheral pulses are present. No edema. - Labs CBC & Chem 7: 02/17/22 10:11 02/17/22 10:11 Labs: Abnormal Lab Results - Last 24 Hours (Table) 02/18/22 Range/Units 08:12 HDL Cholesterol 70.60 H (40.00-60.00) mg/dL Vitamin D 25-Hydroxy 26.0 L (30.0-100.0) ng/mL Assessment and Plan Assessment: * 36-year-old female presented with 2 day history of slurred speech and 1 day history of mild dysphagia and drooling. Patient had similar episode of slurred speech twice in the past, once lasting for a month and another time lasted for a week. Examination revealed mild left facial weakness, central type and slight tongue deviation to the left. MRI of the brain with and without contrast revealed multiple white matter lesions, one of them enhancing involving the right subcortical region, highly suggestive of multiple sclerosi s. * B12, folate and vitamin D deficiency. * Tobacco use * History of migraine headaches Plan: * MRI of the brain with and without contrast revealed no acute ischemic stroke. Scattered bilateral cerebral periventricular and subcortical white matter foci of bright T2 was inferior signal, mainly seen perpendicular to the lateral ventricles giving her Weber's fingers appearance. The largest is seen in the right murdock radiata measuring up to 2.1 cm with bright diffusion signal and incomplete ring enhancement in the post contrast images. No definite juxtacortical, corpus callosum or infratentorial lesion identified. Constellation of these findings are highly suggestive of a demyelinating disease like multiple sclerosis. * I had a very prolonged discussion with the patient about results of MRI of the brain. Patient has multiple nonenhancing and only one ring-enhancing lesion noted on the MRI of brain. Patient has clinical history of at least 2 prior episodes of significant neurological symptoms that lasted for 1 week to a month. Her disease is spread in time and space. This is consistent with clinically definite multiple sclerosis. Patient feels her current neurological symptoms are getting worse. Therefore we will start Solu-Medrol 1 g IVPB daily for 3-5 days. Patient states that she has an upcoming interview on Monday at [facility], therefore wants to have infusion only for 3 days. She will be discharged on tapering down dose of prednisone thereafter. Patient was informed that she needs to follow-up with a neurologist for further management of MS. She may benefit from lumbar puncture, just to have more evidence of MS, although the diagnosis appears quite straightforward. Patient will need to be started on disease modifying medication as soon as she completes her course of steroids. * B12 borderline 309, folate borderline 7.40. Vitamin D slightly low 26, TSH is normal 1.32. Hemoglobin A1c normal 5.1. Lipid panel with cholesterol 174, LDL 89, HDL 70 and triglycerides 71. Sjogren's antibodies negative, JOSÉ MIGUEL negative, RPR negative. Patient will be started on B12, folate and vitamin D replacement. * Recommended tobacco cessation. Time with Patient: Greater than 30
--- NOTE | 2022-02-19 11:32 | P.PN ---
Subjective This is a pleasant 36 years old female with past medical history of asthma and migraine, patient presents because of slurred speech that started 3-4 days ago, patient states this happened to her twice during the summer which resolved spontaneously after one month and one week respectively. Also she has difficulties swallowing her food with drooling some saliva. And she noticed that her lip also deviated to the right side. However patient denies headache, no dizziness, no weakness in one site, no numbness, no bolus problems but she states when she walks downstairs she has some difficulty keeping her bones. She has been seen neurologist many years ago and she was suspected to have MS but she did not follow through, at that time she has some issues with her legs. She denies chest pain or dyspnea. No fever. No change in urine or bowel fajardo bits. No dysuria or urgency. She just finished her menstrual cycle, I offered test but she declines. Vitals are stable and labs are unremarkable including CBC, BMP, liver enzymes, urine analysis, urine test, urine drug screen CT of the brain: Interval development of abnormal low attenuation in the left frontal white matter correlate for possible demyelinating disease or ischemic event. Brain MRI likely would be of benefit Chest x-ray: No acute process. CT angiography: Somewhat small caliber to the bilateral vertebral and basilar arteries. Bilateral posterior rectum indicating arteries are visualized and posterior circulation is patent. Dural sinuses are patent. Neck widely patent carotid and vertebral arteries of the neck. 02/18/2022 Patient still has the same symptoms of slurred speech and left facial droop and difficulty swallowing last night. No other neurological deficits. No other complaint. Medically stable. Blood tests ordered by neurologist still pending. MRI of the brain is pending. Patient states she is not claustrophobic 02/19/2022 Patient has similar neurological symptoms with left-sided facial droop with some swallowing difficulty. MRI is consistent with demyelinating disease and patient was diagnosed with multiple sclerosis and started on IV Solu-Medrol 1000 mg daily 3 days. Patient needed to be discharged on tapering steroids and follow-up with the neurologist as an outpatient Patient has some restless leg yesterday and some leg pain. She is already on subcu heparin however we will check ultrasound of the leg Objective - Vital Signs Vital signs: Vital Signs Temp 98.2 F 02/19/22 08:00 Pulse 72 02/19/22 08:00 Resp 16 02/19/22 08:00 BP 113/71 02/19/22 08:00 Pulse Ox 95 02/19/22 08:00 Intake & Output 02/18/22 02/19/22 02/19/22 18:59 06:59 18:59 Intake Total 1380 118 Balance 1380 118 Intake: Oral 1380 118 Other: # Voids 1 - Exam GENERAL: The patient is alert and oriented x3, not in any acute distress. Well developed, well nourished. HEENT: Pupils are round and equally reacting to light. EOMI. No scleral icterus. No conjunctival pallor. Normocephalic, atraumatic. No pharyngeal erythema. No thyromegaly. CARDIOVASCULAR: S1 and S2 present. No murmurs, rubs, or gallops. PULMONARY: Chest is clear to auscultation, no wheezing or crackles. ABDOMEN: Soft, nontender, nondistended, normoactive bowel sounds. No palpable organomegaly. MUSCULOSKELETAL: No joint swelling or deformity. EXTREMITIES: No cyanosis, clubbing, or pedal edema. -NEUROLOGICAL: Critical nerves are grossly intact. She has mild deviation of the lower lip to the right side. Tongue and uvula midline. Motor is 5/5 and sensation is intact in all extremities. Meningeal signs are absent SKIN: No rashes. No petechiae - Labs CBC & Chem 7: 02/17/22 10:11 02/17/22 10:11 Labs: Abnormal Lab Results - Last 24 Hours (Table) 02/18/22 Range/Units 08:12 HDL Cholesterol 70.60 H (40.00-60.00) mg/dL Vitamin D 25-Hydroxy 26.0 L (30.0-100.0) ng/mL Assessment and Plan Assessment: NEW Diagnosis of multiple sclerosis. Patient with slurred speech, difficulty swallowing and left lip/face weakness bilateral leg pain, most likely musculoskeletal. Rule out DVT Nicotine dependence patient counseled to quit and she agrees. She declines nicotine patch History of migraine History of asthma, not active tissue Plan: This Is a pleasant 36 years old female who presents with new neurological symptoms suspicious for stroke versus demyelinating disease Continue with Solu-Medrol 1000 daily 3 days and continue with tapered steroids upon discharge Follow-up with the neurologist as an outpatient in 1-2 weeks Neurology consult on the case Check lower extremity ultrasound Continue with speech evaluation and PT/OT Labs and medication were reviewed.. Continue same treatment. Continue with symptomatic treatment. Resume home medication. Monitor lytes and vitals. DVT and GI prophylaxis. Further recommendations depends on the clinical course of the patient DVT prophylaxis: Mechanical GI Prophylaxis: Pepcid PT/OT: Pending Prognosis is guarded
[2022-02-19] MEDS: methylPREDNISolone SOD SUCCIN 1,000 MG in SODIUM CHLORIDE 0.9% 250 ML IVPB SCH (15:28)
--- NOTE | 2022-02-19 15:44 | US ---
EXAMINATION TYPE: US venous doppler duplex LE DATE OF EXAM: 02/19/2022 2:32 PM COMPARISON: NONE CLINICAL HISTORY: leg swelling. Leg swelling. No hx of DVT. SIDE PERFORMED: Bilateral TECHNIQUE: The lower extremity deep venous system is examined utilizing real time linear array sonog anthony with graded compression, doppler sonography and color-flow sonography. VESSELS IMAGED: Common Femoral Vein Deep Femoral Vein Greater Saphenous Vein * Femoral Vein Popliteal Vein Small Saphenous Vein * Proximal Calf Veins (* superficial vessels) Right Leg: No evidence of DVT in veins imaged. Left Leg: No evidence of DVT in veins imaged. IMPRESSION: No evidence of deep vein thrombosis in both legs.
[2022-02-19] MEDS: IBUPROFEN 400 MG TAB PO PRN ×2 (16:08→22:48)
--- NOTE | 2022-02-20 08:39 | P.PN ---
Subjective Progress Note Date: 02/19/22 Patient was seen for follow-up. Patient feels her symptoms are no changes compared to yesterday. Patient has noticed that for quite some time, she has been having difficulty controlling her laugh. One time it was a very serious topic going on and she kept on smiling. Patient has noticed that she has been yawning more frequently even while talking, which has never happened before. Patient states that her legs have been bothering, feels somewhat uncomfortable. Objective - Vital Signs Vital signs: Vital Signs Temp 98.2 F 02/19/22 08:00 Pulse 72 02/19/22 08:00 Resp 16 02/19/22 08:00 BP 113/71 02/19/22 08:00 Pulse Ox 95 02/19/22 08:00 Intake & Output 02/18/22 02/19/22 02/19/22 18:59 06:59 18:59 Intake Total 1380 118 Balance 1380 118 Intake: Oral 1380 118 Other: # Voids 1 - Exam Patient is a young female, in no acute distress. Patient is alert awake oriented to time place and person. Speech is mild to moderately dysarthric and language functions are normal. Patient can name and repeat very well. Attention, concentration and fund of knowledge is adequate. On cranial nerve examination, pupils are equal, round and reacting to light, visual manzano are full on confrontation, extraocular muscles are intact with no nystagmus. Patient has left facial weakness, central type, which is predominantly involving the left lower lip region. Her tongue protrudes slightly to the left stable as compared to yesterday. The strength of the tongue under the cheek however was equal on either side. Palatal elevation and sensation normal, hearing and shoulder shrug normal. Facial sensation decreased for pinprick involving the all 3 region of the trigeminal nerve. However the fine touch is decreased only involving the left maxillary and mandibular region. Shoulder shrug normal. On muscle strength testing, there is no pronator drift and the strength is normal in arms and legs distally and proximally. Deep tendon reflexes are symmetric, 2 at the biceps and brachioradialis, 2+ to 3 at the knees, 2 ankles and plantars downgoing bilaterally. Sensory to touch is equal with no neglect. Cerebellar function showed no ataxia for [id number]-[id number]-syth testing. No ataxia for bkfl-ti-ovze testing. No dysdiadochokinesia. Tone and bulk of muscles normal. Gait deferred. On general examination, there is no carotid bruit or murmur, S1-S2 audible. Abdomen is soft nontender. No organomegaly, bowel sounds present. Chest is c lear. Peripheral pulses are present. No edema. 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 * B12, folate and vitamin D deficiency. * Tobacco use * History of migraine headaches Plan: * Continue Solu-Medrol 1 g IVPB daily for 3-5 days. Patient tolerating it well with no side effects. Patient wishes to receive Solu-Medrol only for 3 days, as she has to go for interview to [place] on Monday. Patient will receive prednisone tapering doses after 3 days of Solu-Medrol IV. * MRI of the brain with and without contrast revealed no acute ischemic stroke. Scattered bilateral cerebral periventricular and subcortical white matter foci of bright T2 was inferior signal, mainly seen perpendicular to the lateral ventricles giving her Weber's fingers appearance. The largest is seen in the right murdock radiata measuring up to 2.1 cm with bright diffusion signal and incomplete ring enhancement in the post contrast images. No definite juxtacortical, corpus callosum or infratentorial lesion identified. Constellation of these findings are highly suggestive of a demyelinating disease like multiple sclerosis. * Patient was informed that she needs to follow-up with a neurologist for further management of MS. She may benefit from lumbar puncture, just to have more evidence of MS, although the diagnosis appears quite straightforward. Patient will need to be started on disease modifying medication as soon as she completes her course of steroids. * B12 borderline 309, folate borderline 7.40. Vitamin D slightly low 26, TSH is normal 1.32. Hemoglobin A1c normal 5.1. Lipid panel with cholesterol 174, LDL 89, HDL 70 and triglycerides 71. Sjogren's antibodies negative, JOSÉ MIGUEL negative, RPR negative. Patient will be started on B12, folate and vitamin D replacement. * Recommended complete tobacco cessation.
[2022-02-20] MEDS: CHOLECALCIFEROL 125 MCG (5000 IU) TABLET PO SCH (10:05)
[2022-02-20] MEDS: FAMOTIDINE 20 MG TAB PO SCH ×2 (10:05→21:21)
[2022-02-20] MEDS: buPROPion XL 150 MG TAB.ER.24H PO SCH (10:05)
[2022-02-20] MEDS: polyethylene glycoL 3350 17 GM POWD.PACK PO SCH (10:06)
[2022-02-20] MEDS: HEPARIN SODIUM,PORCINE/PF 5,000 UNIT/0.5 ML SYRINGE SQ SCH ×2 (10:06→21:21)
--- NOTE | 2022-02-20 11:35 | P.PN ---
Subjective This is a pleasant 36 years old female with past medical history of asthma and migraine, patient presents because of slurred speech that started 3-4 days ago, patient states this happened to her twice during the summer which resolved spontaneously after one month and one week respectively. Also she has difficulties swallowing her food with drooling some saliva. And she noticed that her lip also deviated to the right side. However patient denies headache, no dizziness, no weakness in one site, no numbness, no bolus problems but she states when she walks downstairs she has some difficulty keeping her bones. She has been seen neurologist many years ago and she was suspected to have MS but she did not follow through, at that time she has some issues with her legs. She denies chest pain or dyspnea. No fever. No change in urine or bowel fajardo bits. No dysuria or urgency. She just finished her menstrual cycle, I offered test but she declines. Vitals are stable and labs are unremarkable including CBC, BMP, liver enzymes, urine analysis, urine test, urine drug screen CT of the brain: Interval development of abnormal low attenuation in the left frontal white matter correlate for possible demyelinating disease or ischemic event. Brain MRI likely would be of benefit Chest x-ray: No acute process. CT angiography: Somewhat small caliber to the bilateral vertebral and basilar arteries. Bilateral posterior rectum indicating arteries are visualized and posterior circulation is patent. Dural sinuses are patent. Neck widely patent carotid and vertebral arteries of the neck. 02/18/2022 Patient still has the same symptoms of slurred speech and left facial droop and difficulty swallowing last night. No other neurological deficits. No other complaint. Medically stable. Blood tests ordered by neurologist still pending. MRI of the brain is pending. Patient states she is not claustrophobic 02/19/2022 Patient has similar neurological symptoms with left-sided facial droop with some swallowing difficulty. MRI is consistent with demyelinating disease and patient was diagnosed with multiple sclerosis and started on IV Solu-Medrol 1000 mg daily 3 days. Patient needed to be discharged on tapering steroids and follow-up with the neurologist as an outpatient Patient has some restless leg yesterday and some leg pain. She is already on subcu heparin however we will check ultrasound of the leg 02/20/2022 Patient clinically states the same with similar left-sided facial droop and some difficulty with swallowing however she is able to tolerate diet, she had her breakfast this morning with no difficulty. No nausea vomiting. No chest pain or dyspnea or other complaint. Her lip and improved and upon of the leg is negative for DVT. And hemodynamically stable. TSH is normal at 1.3, poorcalcitonin is less than 0.02. Vitamin D is low at 26 which has been replaced. B12 is low normal at 309 we'll give replacement for 3 days. With recommendation to recheck it as an outpatient. She remains on therapeutic dose of IV Solu-Medrol 1000 mg daily Objective - Vital Signs Vital signs: Vital Signs Temp 98.3 F 02/20/22 08:00 Pulse 71 02/20/22 08:00 Resp 18 02/20/22 08:00 BP 102/58 02/20/22 08:00 Pulse Ox 100 02/20/22 08:00 Intake & Output 02/19/22 02/20/22 02/20/22 18:59 06:59 18:59 Intake Total 646 260 Balance 646 260 Intake: Oral 646 260 Other: # Voids 3 1 - Exam GENERAL: The patient is alert and oriented x3, not in any acute distress. Well developed, well nourished. HEENT: Pupils are round and equally reacting to light. EOMI. No scleral icterus. No conjunctival pallor. Normocephalic, atraumatic. No pharyngeal erythema. No thyromegaly. CARDIOVASCULAR: S1 and S2 present. No murmurs, rubs, or gallops. PULMONARY: Chest is clear to auscultation, no wheezing or crackles. ABDOMEN: Soft, nontender, nondistended, normoactive bowel sounds. No palpable organomegaly. MUSCULOSKELETAL: No joint swelling or deformity. EXTREMITIES: No cyanosis, clubbing, or pedal edema. -NEUROLOGICAL: Critical nerves are grossly intact. She has mild deviation of the lower lip to the right side. Tongue and uvula midline. Motor is 5/5 and sensation is intact in all extremities. Meningeal signs are absent SKIN: No rashes. No petechiae - Labs CBC & Chem 7: 02/17/22 10:11 02/17/22 10:11 Assessment and Plan Assessment: NEW Diagnosis of multiple sclerosis. Patient with slurred speech, difficulty swallowing and left lip/face weakness bilateral leg pain, most likely musculoskeletal. Rule out DVT Nicotine dependence patient counseled to quit and she agrees. She declines nicotine patch History of migraine History of asthma, not active tissue Low vitamin D Borderline vitamin B-12 Plan: This Is a pleasant 36 years old female who presents with new neurological symptoms suspicious for stroke versus demyelinating disease Continue with Solu-Medrol 1000 daily 3 days and continue with tapered steroids upon discharge Follow-up with the neurologist as an outpatient in 1-2 weeks Neurology consult on the case X-ray with a Place and vitamin D and B12. We recommend to check vitamin B12 in 1 month with PCP Continue with speech evaluation and PT/OT Labs and medication were reviewed.. Continue same treatment. Continue with symptomatic treatment. Resume home medication. Monitor lytes and vitals. DVT and GI prophylaxis. Further recommendations depends on the clinical course of the patient DVT prophylaxis: Mechanical GI Prophylaxis: Pepcid PT/OT: Pending Prognosis is guarded
[2022-02-20] MEDS: methylPREDNISolone SOD SUCCIN 1,000 MG in SODIUM CHLORIDE 0.9% 250 ML IVPB SCH ×2 (15:43→19:22)
[2022-02-20] MEDS: CYANOCOBALAMIN 1,000 MCG/ML 1 ML VIAL IM SCH (15:43)
--- NOTE | 2022-02-21 08:56 | P.PN ---
Subjective Progress Note Date: 02/20/22 Patient was seen for follow-up. Patient feels her symptoms are slightly better. Her legs have improved. Last night it was hurting, but today it's better. She gets discomfort feeling in both thighs, but pointing to the lateral and medial region of the thighs and then extends down to calf to the feet. Patient states that for the last 3 years she has issues with bowel movement as she gets constipated and has to take laxative. Denies any urinary incontinence, leaking or urgency. Patient has informed yesterday that that she has noticed that for quite some time, she has been having difficulty controlling her laugh. One time it was a very serious topic going on and she kept on smiling. Patient has noticed that she has been yawning more frequently even while talking, which has never happened before. Objective - Vital Signs Vital signs: Vital Signs Temp 98.3 F 02/20/22 08:00 Pulse 71 02/20/22 08:00 Resp 18 02/20/22 08:00 BP 102/58 02/20/22 08:00 Pulse Ox 100 02/20/22 08:00 Intake & Output 02/19/22 02/20/22 02/20/22 18:59 06:59 18:59 Intake Total 646 260 Balance 646 260 Intake: Oral 646 260 Other: # Voids 3 1 - Exam Patient is a young female, in no acute distress. Patient is alert awake oriented to time place and person. Speech is mildly dysarthric and language functions are normal. Patient can name and repeat very well. Attention, concentration and fund of knowledge is adequate. On cranial nerve examination, pupils are equal, round and reacting to light, visual manzano are full on confrontation, extraocular muscles are intact with no nystagmus. Patient has left facial weakness, central type, which is pre dominantly involving the left lower lip region. It appears better as compared to yesterday. Her tongue protrudes slightly to the left stable as compared to yesterday. The strength of the tongue under the cheek however was equal on either side. Palatal elevation and sensation normal, hearing and shoulder shrug normal. Facial sensation decreased for pinprick involving the all 3 region of the trigeminal nerve. However the fine touch is decreased only involving the left maxillary and mandibular region. Shoulder shrug normal. On muscle strength testing, there is no pronator drift and the strength is normal in arms and legs distally and proximally. Deep tendon reflexes are symmetric, 2 at the biceps and brachioradialis, 2+ to 3 at the knees, 2 ankles and plantars downgoing bilaterally. Sensory to touch is equal with no neglect. Cerebellar function showed no ataxia for jdigor-uj-srtr testing. No ataxia for btom-kf-vzwi testing. No dysdiadochokinesia. Tone and bulk of muscles normal. Gait deferred. On general examination, there is no carotid bruit or murmur, S1-S2 audible. A bdomen is soft nontender. No organomegaly, bowel sounds present. Chest is clear. Peripheral pulses are present. No edema. 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 * B12, folate and vitamin D deficiency. * Tobacco use * History of migraine headaches Plan: * Patient has agreed to stay for 2 more days to take total of 5 days for completion of Solu-Medrol 1 g IVPB daily. Today is day #3. Patient tolerating it well with no side effects. * Patient wants to proceed with lumbar puncture to evaluate for oligoclonal bands. We will consult anesthesia. * MRI of the cervical and thoracic spine with and without contrast to evaluate for the extent of the disease. * MRI of the brain with and without contrast revealed no acute ischemic stroke. Scattered bilateral cerebral periventricular and subcortical white matter foci of bright T2 was inferior signal, mainly seen perpendicular to the lateral ventricles giving her Weber's fingers appearance. The largest is seen in the right murdock radiata measuring up to 2.1 cm with bright diffusion signal and incomplete ring enhancement in the post contrast images. No definite juxtacortical, corpus callosum or infratentorial lesion identified. Constellation of these findings are highly suggestive of a demyelinating disease like multiple sclerosis. * Patient was informed that she needs to follow-up with a neurologist for further management of MS. Patient will need to be started on disease modifying medication as soon as she completes her course of steroids. * B12 borderline 309, folate borderline 7.40. Vitamin D slightly low 26, TSH is normal 1.32. Hemoglobin A1c normal 5.1. Lipid panel with cholesterol 174, LDL 89, HDL 70 and triglycerides 71. Sjogren's antibodies negative, JOSÉ MIGUEL negative, RPR negative. Awaiting Lyme titer and MIKE level. * Patient will be started on B12, folate and vitamin D replacement. * Recommended complete tobacco cessation. * Dr. Luis Coats to resume neurology service from the morning.
[2022-02-21] MEDS: buPROPion XL 150 MG TAB.ER.24H PO SCH (09:33)
[2022-02-21] MEDS: CYANOCOBALAMIN 500 MCG TAB PO SCH (09:34)
[2022-02-21] MEDS: polyethylene glycoL 3350 17 GM POWD.PACK PO SCH (09:34)
[2022-02-21] MEDS: CHOLECALCIFEROL 125 MCG (5000 IU) TABLET PO SCH (09:34)
[2022-02-21] MEDS: methylPREDNISolone SOD SUCCIN 1,000 MG in SODIUM CHLORIDE 0.9% 250 ML IVPB SCH (09:34)
[2022-02-21] MEDS: FAMOTIDINE 20 MG TAB PO SCH ×2 (09:34→20:47)
[2022-02-21] MEDS: FOLIC ACID 1 MG TAB PO SCH (09:34)
--- NOTE | 2022-02-21 12:31 | P.PN ---
Subjective Progress Note Date: 02/21/22 I am seeing the patient for the first time during this hospital visit. Please refer to Dr. Valdez's notes for further details. It seems the patient has probable Multiple Sclerosis and is on IV steroids. She feels slightly better on it. She has left facial weakness and feels left side is weak. She has stated in the past she was told she has Multiple Sclerosis by a different neurologist for her leg weakness (but does not recall having imaging) but did follow-up because of her insurance. Objective - Vital Signs Vital signs: Vital Signs Temp 98.3 F 02/21/22 11:56 Pulse 72 02/21/22 11:56 Resp 20 02/21/22 11:56 BP 111/81 02/21/22 11:56 Pulse Ox 99 02/21/22 11:56 Intake & Output 02/20/22 02/21/22 02/21/22 18:59 06:59 18:59 Intake Total 978 120 Balance 978 120 Intake: Oral 978 120 Other: Voiding Method Toilet # Voids 3 1 0 # Bowel Movements 0 - Exam GENERAL: The patient is lying in bed and is not in acute distress. NEUROLOGICAL: Higher mental function: The patient is awake, alert, oriented to self, place and time. Patient is following commands. No aphasia and no neglect. Cranial nerves: The pupils are round, equal and reactive to light. Visual manzano are full to confrontation throughout. Extraocular movement is intact no nystagmus is noted. Facial sensation is decreased to touch throughout all 3 region of trigeminal nerve to pinprick but fine touch decreased over left maxillary and mandibular region.. The facial strength is left nasolabial flattening.. Tongue is midline and moved [id number] without any difficulty. No dysarthria. Motor: The strength is left upper extremity is 4+ to 5-. Bilateral hand geophysical drafter is 5/5. Otherwise 5 over 5 throughout. Normal tone and bulk. Cerebellum: Normal finger to nose heel to chin bilaterally. Sensation: Sensation is normal to touch throughout. 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 * B12, folate and vitamin D deficiency. * Tobacco use * History of migraine headaches Plan: * Continue total of 5 days for completion of Solu-Medrol 1 g IVPB daily. Today is day #4/5. Patient tolerating it well with no side effects. * Patient wants to proceed with lumbar puncture to evaluate for oligoclonal bands and anesthesiology team consulted.. * MRI of the cervical and thoracic spine with and without contrast to evaluate for the extent of the disease: Pending. * MRI of the brain with and without contrast revealed no acute ischemic stroke. Scattered bilateral cerebral periventricular and subcortical white matter foci of bright T2 was inferior signal, mainly seen perpendicular to the lateral ventricles giving her Weber's fingers appearance. The largest is seen in the right murdock radiata measuring up to 2.1 cm with bright diffusion signal and incomplete ring enhancement in the post contrast images. No definite juxtacortical, corpus callosum or infratentorial lesion identified. Constellation of these findings are highly suggestive of a demyelinating disease like multiple sclerosis. * Patient was informed that she needs to follow-up with a neurologist for further management of MS. Patient will need to be started on disease modifying medication as soon as she completes her course of steroids. * B12 borderline 309, folate borderline 7.40. Vitamin D slightly low 26, TSH is normal 1.32. Hemoglobin A1c normal 5.1. Lipid panel with cholesterol 174, LDL 89, HDL 70 and triglycerides 71. Sjogren's antibodies negative, JOSÉ MIGUEL negative, RPR negative. Awaiting Lyme titer and MIKE level. * On B12, folate and vitamin D replacement. * Recommended complete tobacco cessation and counseled for 3-4 minutes. * Patient will follow-up with me for neurological management as outpatient for her diagnosis of multiple sclerosis. Recommend to follow-up within 1-2 weeks. The plan is discussed with her nurse. Luis Coats M.D. Neuro-Hospitalist Time with Patient: Less than 30
[2022-02-21] MEDS: MIDAZOLAM 2 MG/2 ML VIAL IVP ONE ×2 (15:05→15:12)
[2022-02-21] MEDS ORDERED: fentaNYL (PF) 50 MCG/ML 2 ML AMP IVP ONE (15:05)
[2022-02-21] MEDS ORDERED: LACTATED RINGERS 1,000 ML IV ONE ×2 (15:05)
--- NOTE | 2022-02-21 15:20 | MR ---
EXAMINATION TYPE: MR jasso wo/w con DATE OF EXAM: 02/21/2022 2:44 PM COMPARISON: NONE HISTORY: [employer] demyelination, evaluate for lesions CONTRAST: The patient was injected with 6 mL intravenous Gadavist gadolinium contrast. Multiplanar MultiSpin echo imaging of the cervical spine was performed. C2-C3: No evidence for degenerative disc disease. No disc bulge/herniation or protrusion. No Canal stenosis. Foramina are patent bilaterally. C3-C4: No evidence for degenerative disc disease. No disc bulge/herniation or protrusion. No Canal stenosis. Foramina are patent bilaterally. C4-C5: No evidence for degenerative disc disease. No disc bulge/herniation or protrusion. No Canal stenosis. Foramina are patent bilaterally. C5-C6: No evidence for degenerative disc disease. No disc herniation or protrusion. Mild posterior disc bulging. No Canal stenosis. Foramina are patent bilaterally. C6-C7:No evidence for degenerative disc disease. No disc herniation or protrusion. Mild posterior d isc bulging. No Canal stenosis. Foramina are patent bilaterally. C7-T1: No evidence for degenerative disc disease. No disc bulge/herniation or protrusion. No Canal stenosis. Foramina are patent bilaterally. No cervical spine fracture. There is normal alignment. Cervical spinal cord is of normal signal. C raniovertebral junction relationships are within normal limits. No pathologic enhancement. IMPRESSION: 1. No cervical spinal cord lesions identified. EXAMINATION TYPE: MR jasso wo/w con DATE OF EXAM: 02/21/2022 2:44 PM COMPARISON: NONE HISTORY: [employer] demyelination, evaluate for lesions Multiplanar MultiSpin echo imaging of the thoracic spine was performed. Pre and post contrast images submitted. Disc spaces: Small right paracentral disc protrusion at its T6-7. No evidence for cord contact. No ev idence for robson disc herniation. Remaining levels are within normal limits. Mild to moderate decreas ed signal and loss of height at this level compatible with degenerative disc disease. Spinal canal: No evidence for canal stenosis. No intrinsic or extrinsic lesion. Thoracic spinal cord: Thoracic spinal cord is of normal caliber and signal. Paraspinal soft tissues: No evidence for paraspinal mass. No destructive lesions seen. Vertebral segments: No evidence for fracture or bony lesion. IMPRESSION: 1. No thoracic spinal cord lesions are identified. 2. Small right paracentral disc protrusion and degenerative disc disease at T6-T7.
--- NOTE | 2022-02-21 15:23 | P.PCN ---
Date of Procedure: 02/21/22 Procedure(s) Performed: Preoperative diagnosis: Multiple sclerosis Post operative diagnoses: Multiple sclerosis Procedure= lumbar puncture Anesthesia local infiltration with lidocaine 1% 2 mL, Versed 2 mg and 50 g. Condition: stable Complication: none. Description of the procedure procedure risk and benefits discussed with the patient and family, consent signed. Patient and the procedure area placed in sitting position, back prepped with chlorhexidine 3 times been local infiltration of the skin and subcutaneous tissue with lidocaine 1% 2 mL for skin and subcu interstitial frustrations at L4 5 levels then 22-gauge Quincke-type needle advanced slowly at L4- 5 interlaminar space there was positive c erebrospinal fluid which was clear, no heme, no paresthesia ,total of 9 ML of clear cerebrospinal fluid collected in 4 different tubes 2-2-1/2 mL in each, then the needle removed and a Band-Aid applied and patient tolerated the procedure well without any complications.
[2022-02-21] MEDS: HEPARIN SODIUM,PORCINE/PF 5,000 UNIT/0.5 ML SYRINGE SQ SCH ×2 (16:15→20:47)
[2022-02-21 17:12] LABS: Glucose,CSF 71 mg/dL (40-70); Total Protein,CSF 37 mg/dL (12-60)
[2022-02-21 17:23] LABS: Appearance,CSF Clear; CSF Tube Number 4; CSF Tube Volume 1; Nucleated Cells, CSF 3 u/L (0-5); Red Blood Cell,CSF 0 u/L (0-10)
[2022-02-21] MEDS: SENNOSIDES 8.6 MG TAB PO SCH ×2 (20:41→20:46)
--- NOTE | 2022-02-22 01:31 | P.PN ---
Subjective Progress Note Date: 02/21/22 This is a pleasant 36 years old female with past medical history of asthma and migraine, patient presents because of slurred speech that started 3-4 days ago, patient states this happened to her twice during the summer which resolved spontaneously after one month and one week respectively. Also she has difficulties swallowing her food with drooling some saliva. And she noticed that her lip also deviated to the right side. However patient denies headache, no dizziness, no weakness in one site, no nu mbness, no bolus problems but she states when she walks downstairs she has some difficulty keeping her bones. She has been seen neurologist many years ago and she was suspected to have MS but she did not follow through, at that time she has some issues with her legs. She denies chest pain or dyspnea. No fever. No change in urine or bowel habits. No dysuria or urgency. She just finished her menstrual cycle, I offered test but she declines. Vitals are stable and labs are unremarkable including CBC, BMP, liver enzymes, urine analysis, urine test, urine drug screen CT of the brain: Interval development of abnormal low attenuation in the left frontal white matter correlate for possible demyelinating disease or ischemic event. Brain MRI likely would be of benefit Chest x-ray: No acute process. CT angiography: Somewhat small caliber to the bilateral vertebral and basilar arteries. Bilateral posterior rectum indicating arteries are visualized and posterior circulation is patent. Dural sinuses are patent. Neck widely patent carotid and vertebral arteries of the neck. 02/18/2022 Patient still has the same symptoms of slurred speech and left facial droop and difficulty swallowing last night. No other neurological deficits. No other complaint. Medically stable. Blood tests ordered by neurologist still pending. MRI of the brain is pending. Patient states she is not claustrophobic 02/19/2022 Patient has similar neurological symptoms with left-sided facial droop with some swallowing difficulty. MRI is consistent with demyelinating disease and patient was diagnosed with multiple sclerosis and started on IV Solu-Medrol 1000 mg daily 3 days. Patient needed to be discharged on tapering steroids and follow-up with the neurologist as an outpatient Patient has some restless leg yesterday and some leg pain. She is already on subcu heparin however we will check ultrasound of the leg 02/20/2022 Patient clinically states the same with similar left-sided facial droop and some difficulty with swallowing however she is able to tolerate diet, she had her félix akfast this morning with no difficulty. No nausea vomiting. No chest pain or dyspnea or other complaint. Her lip and improved and upon of the leg is negative for DVT. And hemodynamically stable. TSH is normal at 1.3, poorcalcitonin is less than 0.02. Vitamin D is low at 26 which has been replaced. B12 is low normal at 309 we'll give replacement for 3 days. With recommendation to recheck it as an outpatient. She remains on therapeutic dose of IV Solu-Medrol 1000 mg daily 02/21/2022 Patient is seen and evaluated in follow-up today with neurology following closely. MRI of the cervical spine ordered and pending for today. Patient is also scheduled to undergo lumbar puncture with anesthesia consulted. Patient maintained on high dose IV steroids and reports to maybe some slight improveme nt. Patient continues with left facial drooping and numbness and some mild speech disturbance. Will consult PT/OT for facial weakness. Patient is afebrile. Patient denies chest pain or shortness of breath. Review of systems: Constitutional: No reports of fatigue, fever, or chills Cardiovascular: No reports of chest pain or palpitations Respiratory: No reports of shortness of breath or cough GI: No reports of nausea, vomiting, or diarrhea : No reports of dysuria or retention Neurovascular: reports of left side facial drooping and facial weakness All medications have been reviewed Active Medications Acetaminophen (Acetaminophen Tab 325 Mg Tab) 650 mg PO Q6HR PRN PRN Reason: Fever Last Admin: 02/19/22 09:00 Dose: 650 mg Documented by: Bupropion HCl (Bupropion Xl 150 Mg Tab.Er.24h) 450 mg PO DAILY [facility] Last Admin: 02/21/22 09:33 Dose: 450 mg Documented by: Cholecalciferol (Cholecalciferol 125 Mcg (5000 Iu) Tablet) 125 mcg PO DAILY [facility] Last Admin: 02/21/22 09:34 Dose: 125 mcg Documented by: Cyanocobalamin (Cyanocobalamin 500 Mcg Tab) 1,000 mcg PO DAILY [facility] Last Admin: 02/21/22 09:34 Dose: 1,000 mcg Documented by: Famotidine (Famotidine 20 Mg Tab) 20 mg PO BID [facility] Last Admin: 02/21/22 09:34 Dose: 20 mg Documented by: Folic Acid (Folic Acid 1 Mg Tab) 1 mg PO DAILY [facility] Last Admin: 02/21/22 09:34 Dose: 1 mg Documented by: Heparin Sodium (Porcine) (Heparin Sodium,Porcine/Pf 5,000 Unit/0.5 Ml Syringe) 5,000 unit SQ Q12HR [facility] Last Admin: 02/20/22 21:21 Dose: 5,000 unit Documented by: Methylprednisolone Sodium Succinate 1,000 mg/ Sodium Chloride 250 mls @ 250 mls/hr IVPB DAILY [facility] Stop: 02/23/22 09:01 Last Admin: 02/21/22 09:34 Dose: 250 mls/hr Documented by: Polyethylene Glycol (Polyethylene Glycol 3350 17 Gm Powd.Pack) 17 gm PO DAILY [facility] Last Admin: 02/21/22 09:34 Dose: 17 gm Documented by: Senna (Sennosides 8.6 Mg Tab) 8.6 mg PO BID [facility] Physical exam: GENERAL: The patient is alert and oriented x3, not in any acute distress. Well developed, well nourished. HEENT: Pupils are round and equally reacting to light. EOMI. No scleral icterus. No conjunctival pallor. Normocephalic, atraumatic. No pharyngeal erythema. No thyromegaly. CARDIOVASCULAR: S1 and S2 muffled PULMONARY: Chest is clear to auscultation, no wheezing or crackles. ABDOMEN: Soft, nontender, nondistended, normoactive bowel sounds. No palpable organomegaly. MUSCULOSKELETAL: No joint swelling or deformity. EXTREMITIES: No cyanosis, clubbing, or pedal edema. NEUROLOGICAL: Critical nerves are grossly intact. She has mild deviation of the lower lip to the left side. Tongue and uvula midline. Motor is 5/5 and sensation is intact in all extremities. Meningeal signs are absent SKIN: No rashes. No petechiae Assessment: NEW Diagnosis of multiple sclerosis. Patient with slurred speech, difficulty swallowing and left lip/face weakness bilateral leg pain, most likely musculoskeletal. Ruled out DVT Nicotine dependence , counseling provided History of migraine Constipation History of asthma, not in acute exacerbation Low vitamin D Borderline vitamin B-12 DVT prophylaxis GI Prophylaxis: Pepcid Plan: This Is a pleasant 36 years old female who presents with new neurological symptoms suspicious for stroke versus demyelinating disease, probable MS and neurology following closely. MRI of the cervical spine ordered and pending and also LP with anesthesia. Continue with Solu-Medrol 1000 daily, day 4 of 5 today and continue with tapered steroid upon discharge Patient with some constipation and have added bowel regimen Follow-up with the neurologist as an outpatient in 1-2 weeks Neurology following Continue with speech evaluation and PT/OT PT/OT: Pending Prognosis is guarded The impression and plan of care has been dictated by Roselia Hollis, Nurse Practitioner as directed. Dr. Eliceo MD I have performed a history and examination and MDM of this patient, discussed the same with the dictator, and agree with the dictator's assessment and plan as written ,documented as a scribe. Based on total visit time, I have performed more than 50% of the visit. Objective - Vital Signs Vital signs: Vital Signs Temp 97.6 F 02/21/22 09:09 Pulse 75 02/21/22 09:09 Resp 20 02/21/22 09:09 BP 110/69 02/21/22 09:09 Pulse Ox 98 02/21/22 09:09 Intake & Output 02/20/22 02/21/22 02/21/22 18:59 06:59 18:59 Intake Total 978 120 Balance 978 120 Intake: Oral 978 120 Other: Voiding Method Toilet # Voids 3 1 0 # Bowel Movements 0 - Labs CBC & Chem 7: 02/17/22 10:11 02/17/22 10:11
[2022-02-22 07:48] VITALS: PULSE 63; RESP 20
[2022-02-22] MEDS: buPROPion XL 150 MG TAB.ER.24H PO SCH (08:12)
[2022-02-22] MEDS: FAMOTIDINE 20 MG TAB PO SCH (08:12)
[2022-02-22] MEDS: SENNOSIDES 8.6 MG TAB PO SCH (08:12)
[2022-02-22] MEDS: CHOLECALCIFEROL 125 MCG (5000 IU) TABLET PO SCH (08:12)
[2022-02-22] MEDS: HEPARIN SODIUM,PORCINE/PF 5,000 UNIT/0.5 ML SYRINGE SQ SCH (08:12)
[2022-02-22] MEDS: polyethylene glycoL 3350 17 GM POWD.PACK PO SCH (08:12)
[2022-02-22] MEDS: FOLIC ACID 1 MG TAB PO SCH (08:13)
[2022-02-22] MEDS: CYANOCOBALAMIN 500 MCG TAB PO SCH (08:13)
[2022-02-22] MEDS: methylPREDNISolone SOD SUCCIN 1,000 MG in SODIUM CHLORIDE 0.9% 250 ML IVPB SCH (08:15)
[2022-02-22 08:54] LABS: African American GFR (CKD) >90 (>60 ml/min/1.73 sqM); Anion Gap 7 mmol/L; Blood Urea Nitrogen 15 mg/dL (7-17); Calcium 8.9 mg/dL (8.4-10.2); Carbon Dioxide 26 mmol/L (22-30); Chloride 103 mmol/L (98-107); Glucose 86 mg/dL (74-99); Non-African American GFR(CKD) >90 (>60 ml/min/1.73 sqM); Potassium 3.5 mmol/L (3.5-5.1); Sodium 136 mmol/L (137-145)
[2022-02-22 11:36] VITALS: BP 114/68; TEMP 98.6
--- NOTE | 2022-02-22 12:14 | P.PN ---
Subjective Progress Note Date: 02/22/22 The patient is seen at bedside and states she is doing better compared to initial presentation but not back to baseline. She stated what brought her to hospital was her dysarthria and swallowing but that is improving. Her left sided weakness was old. She denies of any new neurological problems. Objective - Vital Signs Vital signs: Vital Signs Temp 98.6 F 02/22/22 11:35 Pulse 63 02/22/22 11:35 Resp 20 02/22/22 11:35 BP 114/68 02/22/22 11:35 Pulse Ox 97 02/22/22 11:35 Intake & Output 02/21/22 02/22/22 02/22/22 18:59 06:59 18:59 Intake Total 1970 780 Balance 1970 780 Intake: IV 600 Intake, IV Titration 1250 Amount Lactated Ringers 1,000 ml 1000 @ 0 mls/hr IV [facility] Rx#:[id number] methylPREDNISolone SOD 250 SUCCIN 1,000 mg In Sodium Chloride 0.9% 250 ml @ 250 mls/hr IVPB DAILY [facility] Rx#:[id number] Oral 120 780 Other: Voiding Method Toilet # Voids 0 1 1 # Bowel Movements 0 - Exam GENERAL: The patient is lying in bed and is not in acute distress. NEUROLOGICAL: Higher mental function: The patient is awake, alert, oriented to self, place and time. Patient is following commands. No aphasia and no neglect. Cranial nerves: The pupils are round, equal and reactive to light. Visual manzano are full to confrontation throughout. Extraocular movement is intact no nystagmus is noted. Facial sensation is decreased to touch throughout all 3 region of trigeminal nerve to pinprick but fine touch decreased over left maxillary and mandibular region.. The facial strength is left nasolabial flattening.. Tongue is midline and moved [id number] without any difficulty. No dysarthria. Motor: The strength is left upper extremity is 4+ to 5-. Bilateral hand picker and sorter load and unload is 5/5. Otherwise 5 over 5 throughout. Normal tone and bulk. Cerebellum: Normal finger to nose heel to chin bilaterally. Sensation: Sensation is normal to touch throughout. 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 * B12, folate and vitamin D deficiency. * Tobacco use * History of migraine headaches Plan: * Continue total of 5 days for completion of Solu-Medrol 1 g IVPB daily. Today is day #5/5. Patient tolerating it well with no side effects. * Lumbar Puncture: CSF is clear, colorless, red blood cells 0, total nucleated cells is 3, glucose is 71 (normal glucose level is 40-70) and the total protein is 37 (normal protein level is 12-60). CSF gram stain is no oragnism seen and negative leukocyte. (prelim). Pending oligoclonal bands. * MRI of the cervical w/ and w/o: Is reported as no cervical spine cord lesion identified that. * MRI thoracic spine with and without contrast: No thoracic spinal cord lesion are identified. Small right paracentral disc protrusion and degenerative disc disease at T6-T7. * MRI of the brain with and without contrast revealed no acute ischemic stroke. Scattered bilateral cerebral periventricular and subcortical white matter foci of bright T2 was inferior signal, mainly seen perpendicular to the lateral ventricles giving her Weber's fingers appearance. The largest is seen in the right murdock radiata measuring up to 2.1 cm with bright diffusion signal and incomplete ring enhancement in the post contrast images. No definite juxtacortical, corpus callosum or infratentorial lesion identified. Constellation of these findings are highly suggestive of a demyelinating disease like multiple sclerosis. * Patient was informed that she needs to follow-up with a neurologist for further management of MS. Patient will need to be started on disease modifying medication as soon as she completes her course of steroids. * B12 borderline 309, folate borderline 7.40. Vitamin D slightly low 26, TSH is normal 1.32. Hemoglobin A1c normal 5.1. Lipid panel with cholesterol 174, LDL 89, HDL 70 and triglycerides 71. Sjogren's antibodies negative, JOSÉ MIGUEL n egative, RPR negative. MIKE is 46 (normal). * Awaiting Lyme titer. * On B12, folate and vitamin D replacement. * Recommended complete tobacco cessation and counseled for 3-4 minutes. * Patient will follow-up with me for neurological management as outpatient for her diagnosis of multiple sclerosis. Recommend to follow-up within 1-2 weeks. Patient is clear for discharge from neurological perspective. The plan is discussed with patient and her nurse. Luis Coats M.D. Neuro-Hospitalist Time with Patient: Less than 30
--- NOTE | 2022-02-23 14:37 | P.DS ---
Providers Date of admission: 02/19/22 15:09 Expected date of discharge: 02/22/22 Attending physician: Atul Ingram MD Consults: 02/17/22 13:01 Consult Physician Routine Consulting Provider: Grayson Valdez Consult Reason/Comments: CVA vs. demyelinating disease Do you want consulting provider notified?: Yes 02/20/22 13:21 Consult to Anesthesia Routine Consulting Provider: Anesthesia,Services Consult Reason/Comments: Newly diagnosed probable MS Primary care physician: Sophie Garcia [facility] Course: Final diagnosis Newly diagnosed multiple sclerosis bilateral leg pain, most likely musculoskeletal. Ruled out DVT Nicotine dependence , counseling provided History of migraine Constipation History of asthma, not in acute exacerbation Low vitamin D Borderline vitamin B-12 DVT prophylaxis GI Prophylaxis Discharge disposition Patient is being discharged in a stable condition with guarded prognosis to home. Patient will follow-up with Sandi Wheat in the outpatient setting upon discharge. Patient is to also follow up with neurology in the outpatient setting within the next week. Total time taken is greater than 35 minutes. Hospital course This is a 36-year-old female who was recently admitted with slurred speech that started 3-4 days prior to admission and was being closely monitored. Patient also having difficulty swallowing and noted left-sided droop with lip deviating to the right. Neurology following and full neurological workup was in process with suspected multiple sclerosis. CT of the brain showed interval development of abnormal low attenuation in the left frontal white matter and to correlate for possible demyelinating disease or an ischemic event. Patient also underwent CT angiography along with cervical MRI and lumbar puncture. Results currently pending and will need close follow-up with Sandi Wheat for test results. Patient also encouraged to follow up with neurology within this week. Patient did receive 5 days of high-dose IV Solu-Medrol. Patient was seen in follow-up today in medically cleared by neurology recommending close outpatient follow-up with neurologist in [facility] and/or possible Dr. Luis Coats in [place]. Family to discuss further as [place] is far for them. Patient feeling slightly better and family at the bedside like to take the patient home today. Currently no reports of chest pain, shortness of breath, or palpitations. Patient is afebrile. No reports of nausea or vomiting and patient is tolerating diet. Patient will be discharged home today. On exam vital signs are stable. Cardio S1, S2 are muffled. Respiratory system shows diminished breath sounds at the bases with no wheezing or rhonchi noted. Abdomen is soft and nontender. Nervous system shows some left-sided weakness although improved from admission. A copy of this dictation will also be provided to her primary care provider and this was discussed with the patient. Please refer to medication reconciliation sheet for a list of medications. The impression and plan of care has been dictated by Roselia Hollis, Nurse Practitioner as directed. Dr. Eliceo MD I have performed a history and examination and MDM of this patient, discussed the same with the dictator, and agree with the dictator's assessment and plan as written ,documented as a scribe. Based on total visit time, I have performed more than 50% of the visit. Patient Condition at Discharge: Stable Plan - Discharge Summary Discharge Rx Participant: Yes New Discharge Prescriptions: New polyethylene glycoL 3350 [Miralax] 17 gm PO DAILY 30 Days #30 packet Folic Acid 1 mg PO DAILY #30 tab Acetaminophen Tab [Tylenol] 650 mg PO Q6HR PRN tab PRN Reason: Fever Cyanocobalamin [Vitamin B-12] 1,000 mcg PO DAILY #30 tab Cholecalciferol [Vitamin D3 (125 Mcg = 5000 Iu)] 125 mcg PO DAILY #30 tablet Continue buPROPion HCL [Forfivo Xl] 450 mg PO DAILY metroNIDAZOLE 0.75% CREAM [Metrocream 0.75%] 1 applic TOPICAL BID PRN PRN Reason: face Rosanil Cleanser 1 applic TOPICAL DAILY Discharge Medication List Rosanil Cleanser 1 applic TOPICAL DAILY 02/17/22 [History] buPROPion HCL [Forfivo Xl] 450 mg PO DAILY 02/17/22 [History] metroNIDAZOLE 0.75% CREAM [Metrocream 0.75%] 1 applic TOPICAL BID PRN 02/17/22 [History] Acetaminophen Tab [Tylenol] 650 mg PO Q6HR PRN tab 02/22/22 [Rx] Cholecalciferol [Vitamin D3 (125 Mcg = 5000 Iu)] 125 mcg PO DAILY #30 tablet 02/22/22 [Rx] Cyanocobalamin [Vitamin B-12] 1,000 mcg PO DAILY #30 tab 02/22/22 [Rx] Folic Acid 1 mg PO DAILY #30 tab 02/22/22 [Rx] polyethylene glycoL 3350 [Miralax] 17 gm PO DAILY 30 Days #30 packet 04/12/22 [Rx] Follow up Appointment(s)/Referral(s): Sandi Wheat FNLeonid [Family Provider] - 02/25/22 10:00 am Sophie Garcia MD [Primary Care Provider] - 1-2 days (we recommend to recheck your vitamin B12 with your doctor) Shan Coker MD [Medical Doctor] - 1 Week Luis Coats MD [STAFF PHYSICIAN] - 1 Week Activity/Diet/Wound Care/Special Instructions: we recommend to recheck your vitamin B12 with your doctor Activity Limited until follow-up Follow-up with primary care provider on discharge Discuss further with your family and follow-up with neurology this week Continue taking medications as prescribed Refrain from work until follow-up with primary care and neurologist Discharge Disposition: HOME SELF-CARE
[2022-02-25 12:02] LABS: Lyme IgG/IgM 0.27 Index
== END 2022-02-22 13:17 | disposition home or self-care (01) | DRG 60 ==
LOC: EC 09:25 → 3SCARD 13:03 → INTOOBSV 13:03 → 3SCARD 14:40 → OBSVTOIN 02-19 15:09
PROVIDERS: ADMIT Internal Medicine; ATTEND Internal Medicine
PROC: 009U3ZX Drainage of Spinal Canal, Percutaneous Approach, Diagnostic (ICD-10-PCS; principal; 2022-02-21 10:29)
DX: G35 Multiple sclerosis (principal); G43.909 Migraine, unspecified, not intractable, without status migrainosus; J45.909 Unspecified asthma, uncomplicated; K59.00 Constipation, unspecified; R13.10 Dysphagia, unspecified; R29.810 Facial weakness; G25.81 Restless legs syndrome; E55.9 Vitamin D deficiency, unspecified; Z71.6 Tobacco abuse counseling; F17.290 Nicotine dependence, other tobacco product, uncomplicated; F32.A Depression, unspecified; F48.2 Pseudobulbar affect; R47.81 Slurred speech; Z79.899 Other long term (current) drug therapy
CPT/HCPCS: 36415; 62270; 70450; 70496; 70498; 70553; 71046; 72156; 72157; 80048; 80053; 80061; 80306; 81003; 81025; 82164; 82306; 82607; 82746; 82945; 83036; 83916; 84145; 84157; 84443; 84484; 85025; 85610; 85730; 86038; 86235; 86618; 86780; 87070; 87205; 89050; 93005; 93970; 94760; 96360; 99285

== ENCOUNTER → 2022-06-06 | Outpatient (CLI) | payer OTHER ==
--- NOTE | 2022-06-06 14:31 | US ---
EXAMINATION TYPE: US venous doppler duplex LE DATE OF EXAM: 06/06/2022 1:32 PM COMPARISON: NONE CLINICAL HISTORY: R76.0 RAISED ANTIBODY TITER,M79.604,M79.605 PAIN B. SIDE PERFORMED: Bilateral TECHNIQUE: The lower extremity deep venous system is examined utilizing real time linear array sonog anthony with graded compression, doppler sonography and color-flow sonography. VESSELS IMAGED: Common Femoral Vein Deep Femoral Vein Greater Saphenous Vein * Femoral Vein Popliteal Vein Small Saphenous Vein * Proximal Calf Veins (* superficial vessels) Right Leg: Negative for DVT Left Leg: Negative for DVT IMPRESSION: 1. Bilateral lower extremity ultrasound negative for deep venous thrombosis.
== END | disposition home or self-care (01) ==
LOC: RADUSWWP 13:02
PROVIDERS: ATTEND Student in an Organized Health Care Education/Training Program
DX: R76.0 Raised antibody titer (principal); M79.604 Pain in right leg; M79.605 Pain in left leg
CPT/HCPCS: 93970

== ENCOUNTER 2022-11-10 15:11 | Emergency (ER) | payer OTHER ==
[2022-11-10] MEDS ORDERED: SODIUM CHLORIDE 0.9% 500 ML 500 ML IV STA (15:20)
[2022-11-10 15:22] VITALS: RESP 16; TEMP 98.5
--- NOTE | 2022-11-10 15:30 | ED ---
General Adult HPI - General Source: patient, RN notes reviewed Mode of arrival: ambulatory Limitations: no limitations <Bran Alvarado - Last Filed: 11/10/22 15:28> <Clarence Solis - Last Filed: 11/10/22 19:25> - General Stated complaint: Irregular labs-sent by PCP Time Seen by Provider: 11/10/22 15:21 - History of Present Illness Initial comments: 37-year-old female presents emergency Department chief complaint of near syncopal episode. Patient states she was outside smoking a cigarette when she became very lightheaded, felt like she did not pass out. Patient states she did have some chest pain or shortness of breath. Patient states that her physician recommended she come emergency department as she currently has MS started new confusion 2 weeks ago. Patient's had an elevated d-dimer has not had any imaging including ultrasound or CT of her chest. Patient denies any current nausea vomiting denies a chance . Patient denies any fevers or chills no other associated complaints. No focal weakness. (Bran Alvarado) Dictation was produced using [employer] dictation software. please excuse any grammatical, word or spelling errors. Chief Complaint: 37-year-old female presents emergency department for weakness and near syncope earlier today History of Present Illness: A 7-year-old female has past medical history multiple sclerosis. She sees specialist out of [facility]. She woke up at 5:30 this morning to have a cigarette. She was half with her cigarette when all of a sudden she felt a cabrera of weakness. She describes as a sensation of almost passing out. Patient states that lasted for about an hour. She was able to go to bed and took a nap for several hours. States that when she woke up her symptoms are limited better though she still noticeable. Patient recently started infusion for MS treatment. Patient denies any other medical problems. She has no pain complaints. The ROS documented in this emergency department record has been reviewed and confirmed by me. Those systems with pertinent positive or negative responses have been documented in the HPI. All other systems are other negative and/or noncontributory. PHYSICAL EXAM: General Impression: Alert and oriented x3, not in acute distress HEENT: Normocephalic atraumatic, extra-ocular movements intact, pupils equal and reactive to light bilaterally, mucous membranes moist. Cardiovascular: Heart regular rate and rhythm Chest: Able to complete full sentences, no retractions, no tachypnea Abdomen: abdomen soft, non-tender, non-distended, no organomegaly Musculoskeletal: Pulses present and equal in all extremities, no peripheral edema Motor: no focal deficits noted Neurological: CN II-XII grossly intact, no focal motor or sensory deficits noted Skin: Intact with no visualized rashes Psych: Normal affect and mood ED course: 37-year-old female past surgical history multiple sclerosis presents to the ER for generalized weakness and presyncopal event. Vital signs upon arrival are within acceptable limits. Physical examination is benign. Patient's well-appearing. EKG is unremarkable. Patient has no cardiac history. Patient does not have any high-risk features. Nursing notes and chart review was performed Patient was seen by triage team. Labs were ordered. CBC unremarkable. Coag panel metabolic panel is negative. Abdominal labs negative. Urinalysis negative. Patient is not however d-dimer is elevated 0.67. Highly doubt that patient has a PE given that she does not have any respiratory symptoms. Furthermore she is not tachycardic or hypoxic. Nonetheless we will obtain a CT angios of the chest. Patient also requesting computed tomography scan of the brain. She has no strokelike symptoms. Interventions 0. Neurologic exam is benign. EKG interpreted by me: Ventricular rate 83, normal sinus rhythm,. Interval 154, QRS 80, QTc 465.. No ND prolongation, no QTC prolongation, no ST or T-wave changes noted. . Overall, this EKG is unremarkable Computed tomography scan of the brain today shows white matter hypodensity is likely a reflection patient's multiple sclerosis. This does appear to be new compared to most recent CT from February. Patient observed in emergency department at 7:00 PM but a bit stable medical condition. Patient stable. Discharge and instructed close follow-up with primary care doctor and neurologist. Patient agreeable to plan. Return precautions discussed. (Clarence Solis) - Related Data Home Medications Medication Instructions Recorded Confirmed Ascorbic Acid [Vitamin C] 500 mg PO DAILY 11/10/22 11/10/22 Aspirin EC [Ecotrin Low Dose] 81 mg PO DAILY 11/10/22 11/10/22 Baclofen 5 mg PO HS 11/10/22 11/10/22 Citalopram Hydrobromide [CeleXA] 20 mg PO DAILY 11/10/22 11/10/22 Loratadine 10 mg PO DAILY PRN 11/10/22 11/10/22 Melatonin 5 mg PO HS PRN 11/10/22 11/10/22 bisacodyL [Dulcolax] 20 mg PO DAILY PRN 11/10/22 11/10/22 busPIRone HCl [Buspar] 5 mg PO BID 11/10/22 11/10/22 Allergies Allergy/AdvReac Type Severity Reaction Status Date / Time No Known Allergies Allergy Verified 11/10/22 18:01 Review of Systems ROS Other: All systems not noted in ROS Statement are negative. <Bran Alvarado - Last Filed: 11/10/22 15:28> ROS Other: All systems not noted in ROS Statement are negative. <Clarence Solis - Last Filed: 11/10/22 19:25> ROS Statement: Those systems with pertinent positive or pertinent negative responses have been documented in the HPI. Past Medical History Past Medical History: Asthma Additional Past Medical History / Comment(s): migraines History of Any Multi-Drug Resistant Organisms: None Reported Past Surgical History: Orthopedic Surgery Past Anesthesia/Blood Transfusion Reactions: No Reported Reaction Past Psychological History: Depression Smoking Status: Current every day smoker, Vaper Past Alcohol Use History: None Reported Past Drug Use History: None Reported - Past Family History Mother Family Medical History: Hypertension Father Family Medical History: Hypertension <Bran Alvarado - Last Filed: 11/10/22 15:28> General Exam Limitations: no limitations <Bran Alvarado - Last Filed: 11/10/22 15:28> Course Vital Signs 11/10/22 15:19 Temperature 98.5 F Pulse Rate 82 Respiratory 16 Rate Blood Pressure 115/75 O2 Sat by Pulse 100 Oximetry Medical Decision Making - Lab Data Result diagrams: 11/10/22 15:37 11/10/22 15:37 <Clarence Solis - Last Filed: 11/10/22 19:25> - Medical Decision Making CT angios the chest shows no pulmonary embolism. Patient requested CT scan of the brain. She does not have any neurologic deficits. Brain CT shows parietal white matter hypodensity that is new compared to old exam. Patient has a normal NIH without any neurologic deficits. Old CT scans were reviewed. She had white matter issues seen on scan from March 04. Today's CT of the brain likely reflection of patient's multiple sclerosis. (Clarence Solis) - Lab Data Lab Results 11/10/22 11/10/22 11/10/22 Range/Units 15:37 15:37 15:37 WBC 10.7 H (3.8-10.6) k/uL RBC 4.22 (3.80-5.40) m/uL Hgb 13.8 (11.4-16.0) gm/dL Hct 40.6 (34.0-46.0) % MCV 96.2 (80.0-100.0) fL MCH 32.6 (25.0-35.0) pg MCHC 33.9 (31.0-37.0) g/dL RDW 12.2 (11.5-15.5) % Plt Count 182 (150-450) k/uL MPV 9.7 Neutrophils % 49 % Lymphocytes % 40 % Monocytes % 4 % Eosinophils % 4 % Basophils % 1 % Neutrophils # 5.3 (1.3-7.7) k/uL Lymphocytes # 4.2 (1.0-4.8) k/uL Monocytes # 0.4 (0-1.0) k/uL Eosinophils # 0.4 (0-0.7) k/uL Basophils # 0.1 (0-0.2) k/uL PT 10.0 (9.0-12.0) sec INR 0.9 (<1.2) APTT 27.8 (22.0-30.0) sec D-Dimer 0.67 H (<0.60) mg/L FEU Sodium 137 (137-145) mmol/L Potassium 4.1 (3.5-5.1) mmol/L Chloride 104 (98-107) mmol/L Carbon Dioxide 27 (22-30) mmol/L Anion Gap 6 mmol/L BUN 14 (7-17) mg/dL Creatinine 0.57 (0.52-1.04) mg/dL Est GFR (CKD-EPI)AfAm >90 (>60 ml/min/1.73 sqM) Est GFR (CKD-EPI)NonAf >90 (>60 ml/min/1.73 sqM) Glucose 95 (74-99) mg/dL Calcium 9.2 (8.4-10.2) mg/dL Magnesium 1.9 (1.6-2.3) mg/dL Total Bilirubin 0.4 (0.2-1.3) mg/dL AST 29 (14-36) U/L ALT 26 (4-34) U/L Alkaline Phosphatase 76 (38-126) U/L Troponin I (0.000-0.034) ng/mL Total Protein 7.3 (6.3-8.2) g/dL Albumin 4.6 (3.5-5.0) g/dL Urine Color Urine Appearance (Clear) Urine pH (5.0-8.0) Ur Specific [place] (1.001-1.035) Urine Protein (Negative) Urine Glucose (UA) (Negative) Urine Ketones (Negative) Urine Blood (Negative) Urine Nitrite (Negative) Urine Bilirubin (Negative) Urine Urobilinogen (<2.0) mg/dL Ur Leukocyte Esterase (Negative) Urine HCG, Qual (Not Detectd) 11/10/22 11/10/22 11/10/22 Range/Units 15:37 15:44 15:44 WBC (3.8-10.6) k/uL RBC (3.80-5.40) m/uL Hgb (11.4-16.0) gm/dL Hct (34.0-46.0) % MCV (80.0-100.0) fL MCH (25.0-35.0) pg MCHC (31.0-37.0) g/dL RDW (11.5-15.5) % Plt Count (150-450) k/uL MPV Neutrophils % % Lymphocytes % % Monocytes % % Eosinophils % % Basophils % % Neutrophils # (1.3-7.7) k/uL Lymphocytes # (1.0-4.8) k/uL Monocytes # (0-1.0) k/uL Eosinophils # (0-0.7) k/uL Basophils # (0-0.2) k/uL PT (9.0-12.0) sec INR (<1.2) APTT (22.0-30.0) sec D-Dimer (<0.60) mg/L FEU Sodium (137-145) mmol/L Potassium (3.5-5.1) mmol/L Chloride (98-107) mmol/L Carbon Dioxide (22-30) mmol/L Anion Gap mmol/L BUN (7-17) mg/dL Creatinine (0.52-1.04) mg/dL Est GFR (CKD-EPI)AfAm (>60 ml/min/1.73 sqM) Est GFR (CKD-EPI)NonAf (>60 ml/min/1.73 sqM) Glucose (74-99) mg/dL Calcium (8.4-10.2) mg/dL Magnesium (1.6-2.3) mg/dL Total Bilirubin (0.2-1.3) mg/dL AST (14-36) U/L ALT (4-34) U/L Alkaline Phosphatase (38-126) U/L Troponin I <0.012 (0.000-0.034) ng/mL Total Protein (6.3-8.2) g/dL Albumin (3.5-5.0) g/dL Urine Color Yellow Urine Appearance Clear (Clear) Urine pH 5.5 (5.0-8.0) Ur Specific [place] 1.024 (1.001-1.035) Urine Protein Trace H (Negative) Urine Glucose (UA) Negative (Negative) Urine Ketones 1+ H (Negative) Urine Blood Negative (Negative) Urine Nitrite Negative (Negative) Urine Bilirubin Negative (Negative) Urine Urobilinogen 2.0 (<2.0) mg/dL Ur Leukocyte Esterase Negative (Negative) Urine HCG, Qual Not Detected (Not Detectd) Disposition <Bran Alvarado - Last Filed: 11/10/22 15:28> Is patient prescribed a controlled substance at d/c from ED?: No Time of Disposition: 19:25 <Clarence Solis - Last Filed: 11/10/22 19:25> Clinical Impression: Pre-syncope Disposition: HOME SELF-CARE Referrals: Sophie Garcia MD [Primary Care Provider] - 1-2 days
[2022-11-10 16:11] LABS: Basophils # (A) 0.1 k/uL (0-0.2); Basophils % (A) 1 %; Eosinophils # (A) 0.4 k/uL (0-0.7); Eosinophils % (A) 4 %; HCT 40.6 % (34.0-46.0); HGB 13.8 gm/dL (11.4-16.0); Lymphocytes # (A) 4.2 k/uL (1.0-4.8); Lymphocytes % (A) 40 %; MCH 32.6 pg (25.0-35.0); MCHC 33.9 g/dL (31.0-37.0); MCV 96.2 fL (80.0-100.0); Mean Platelet Volume 9.7; Monocytes # (A) 0.4 k/uL (0-1.0); Monocytes % (A) 4 %; Neutrophils # (A) 5.3 k/uL (1.3-7.7); Neutrophils % (A) 49 %; Platelet Count 182 k/uL (150-450); RBC 4.22 m/uL (3.80-5.40); RDW 12.2 % (11.5-15.5); WBC 10.7 k/uL (3.8-10.6)
[2022-11-10 16:12] LABS: Appearance,Urine Clear (Clear); Bilirubin,Urine Negative (Negative); Blood,Urine Negative (Negative); Color,Urine Yellow; Glucose,Urine (UA) Negative (Negative); Ketones,Urine 1+ (Negative); Leukocyte Esterase,Urine Negative (Negative); Nitrite,Urine Negative (Negative); PH, Urine 5.5 (5.0-8.0); Protein,Urine Trace (Negative); Specific Gravity,Urine 1.024 (1.001-1.035)
--- NOTE | 2022-11-10 16:19 | XR ---
EXAMINATION TYPE: XR chest 2V DATE OF EXAM: 11/10/2022 4:08 PM COMPARISON: Chest radiographs from 02/17/2022 TECHNIQUE: XR chest 2V Frontal and lateral views of the chest. CLINICAL INDICATION:Female, 37 years old with history of syncope; FINDINGS: Lungs/Pleura: There is no evidence of pleural effusion, focal consolidation, or pneumothorax. Pulmonary vascularity: Unremarkable. Heart/mediastinum: Cardiomediastinal silhouette is unremarkable. Musculoskeletal: No acute osseous pathology. IMPRESSION: No acute cardiopulmonary disease/process.
[2022-11-10 16:20] LABS: INR 0.9 (<1.2); Partial Thromboplastin Time 27.8 sec (22.0-30.0)
[2022-11-10 16:22] LABS: ALT 26 U/L (4-34); AST 29 U/L (14-36); African American GFR (CKD) >90 (>60 ml/min/1.73 sqM); Albumin 4.6 g/dL (3.5-5.0); Alkaline Phosphatase 76 U/L (38-126); Anion Gap 6 mmol/L; Blood Urea Nitrogen 14 mg/dL (7-17); Calcium 9.2 mg/dL (8.4-10.2); Carbon Dioxide 27 mmol/L (22-30); Chloride 104 mmol/L (98-107); Glucose 95 mg/dL (74-99); Magnesium 1.9 mg/dL (1.6-2.3); Non-African American GFR(CKD) >90 (>60 ml/min/1.73 sqM); Potassium 4.1 mmol/L (3.5-5.1); Sodium 137 mmol/L (137-145); Total Bilirubin 0.4 mg/dL (0.2-1.3); Total Protein 7.3 g/dL (6.3-8.2)
--- NOTE | 2022-11-10 18:08 | CT ---
EXAMINATION TYPE: CT brain wo con DATE OF EXAM: 11/10/2022 COMPARISON: 02/17/2022 HISTORY: elevated d-dimer and syncope CT DLP: 1099.4 mGycm Automated exposure control for dose reduction was used. Images obtained of the brain with no contrast. Ventricles and sulci appear normal. There is no mass effect or midline shift. No sign of intracranial hemorrhage. The calvarium is intact. There is 2 x 1 cm area of hypodensity in the right parietal lob e white matter. There is 1 cm area of white matter hypodensity left posterior frontal lobe. IMPRESSION: There is a white parietal white matter hypodensity that could be a lacunar infarct at the internal ca psule and appears new compared to old exam. No hemorrhage.
--- NOTE | 2022-11-10 18:27 | CT ---
EXAMINATION TYPE: CT angio chest DATE OF EXAM: 11/10/2022 COMPARISON: Single view HISTORY: elevated d-dimer and syncope CT DLP: 245.7 mGycm Automated exposure control for dose reduction was used. CONTRAST: Performed with IV Contrast, patient injected with 64 mL of Isovue 370. Images obtained from the thoracic inlet to the diaphragm with the IV contrast. There are 3-D post pro cessed images. The lungs are clear of infiltrate. No pleural effusion. Heart size is normal. No pericardial effusion . There is no mediastinal adenopathy. There are no hilar masses. There is normal contrast opacificati on of the pulmonary arteries. No filling defect. The thoracic spine is intact. Sternum is intact. No compression fracture. The upper abdominal soft ti ssues are intact. IMPRESSION: Normal exam. No evidence of pulmonary embolism.
[2022-11-10 19:43] VITALS: BP 109/70; PULSE 71
== END 2022-11-10 19:45 | disposition home or self-care (01) ==
LOC: EC 15:11
DX: R55 Syncope and collapse (principal); J45.909 Unspecified asthma, uncomplicated; F17.290 Nicotine dependence, other tobacco product, uncomplicated; F32.A Depression, unspecified; Z79.899 Other long term (current) drug therapy
CPT/HCPCS: 36415; 93005; 85379; 80053; 83735; 84484; 85025; 85610; 85730; 81003; 81025; 71046; 70450; 71275; 99284; 96360; 96361; Q9967

== ENCOUNTER 2022-11-23 11:50 | Emergency (ER) | payer OTHER ==
[2022-11-23] MEDS ORDERED: SODIUM CHLORIDE 0.9% 1,000 ML IV ONE (14:04)
[2022-11-23] MEDS ORDERED: KETOROLAC 15 MG/ML 1 ML VIAL IVP STA (14:04)
[2022-11-23] MEDS ORDERED: diphenhydrAMINE 50 MG/ML 1 ML VIAL IVP STA (14:05)
[2022-11-23] MEDS ORDERED: PROCHLORPERAZINE INJ 10 MG/2 ML VIAL IVP STA (14:05)
[2022-11-23 14:41] LABS: Basophils # (A) 0.1 k/uL (0-0.2); Basophils % (A) 1 %; Eosinophils # (A) 0.2 k/uL (0-0.7); Eosinophils % (A) 3 %; HCT 35.5 % (34.0-46.0); HGB 12.1 gm/dL (11.4-16.0); Lymphocytes # (A) 2.3 k/uL (1.0-4.8); Lymphocytes % (A) 33 %; MCH 32.9 pg (25.0-35.0); MCHC 33.9 g/dL (31.0-37.0); Monocytes # (A) 0.3 k/uL (0-1.0); Monocytes % (A) 5 %; Neutrophils # (A) 3.9 k/uL (1.3-7.7); Neutrophils % (A) 56 %; Platelet Count 169 k/uL (150-450); RBC 3.66 m/uL (3.80-5.40); RDW 12.8 % (11.5-15.5); WBC 6.9 k/uL (3.8-10.6)
[2022-11-23 15:02] LABS: African American GFR (CKD) >90 (>60 ml/min/1.73 sqM); Anion Gap 4 mmol/L; Blood Urea Nitrogen 13 mg/dL (7-17); Calcium 8.4 mg/dL (8.4-10.2); Carbon Dioxide 25 mmol/L (22-30); Chloride 109 mmol/L (98-107); Glucose 87 mg/dL (74-99); Non-African American GFR(CKD) >90 (>60 ml/min/1.73 sqM); Potassium 4.1 mmol/L (3.5-5.1); Sodium 138 mmol/L (137-145)
--- NOTE | 2022-11-23 15:28 | ED ---
General Adult HPI - General Chief complaint: Abdominal Pain Stated complaint: revisit- headache, confusion Time Seen by Provider: 11/23/22 13:44 Source: patient, RN notes reviewed Mode of arrival: ambulatory - History of Present Illness Initial comments: 37-year-old female presents to the emergency department with a chief complaint of headache. She reports the headache has generalized. She has tried Tylenol and Motrin without relief. She reports accompanying symptoms of photophobia, nausea. He does report a history of migraines, however is not taking any medication for them. Patient received an infusion for her MS on Monday11/21/2022 which she believes triggered her headache this time. She does report a bout of abdominal pain and diarrhea which has since resolved. She denies vision change, vision loss, fevers, abdominal pain, vomiting, dysuria, diarrhea today. - Related Data Home Medications Medication Instructions Recorded Confirmed Ascorbic Acid [Vitamin C] 500 mg PO DAILY 11/10/22 11/23/22 Aspirin EC [Ecotrin Low Dose] 81 mg PO DAILY 11/10/22 11/23/22 Baclofen 5 mg PO HS 11/10/22 11/23/22 Citalopram Hydrobromide [CeleXA] 20 mg PO DAILY 11/10/22 11/23/22 Loratadine 10 mg PO DAILY PRN 11/10/22 11/23/22 Melatonin 5 mg PO HS PRN 11/10/22 11/23/22 bisacodyL [Dulcolax] 20 mg PO DAILY PRN 11/10/22 11/23/22 busPIRone HCl [Buspar] 5 mg PO BID 11/10/22 11/23/22 Allergies Allergy/AdvReac Type Severity Reaction Status Date / Time No Known Allergies Allergy Verified 11/23/22 14:33 Review of Systems ROS Statement: Those systems with pertinent positive or pertinent negative responses have been documented in the HPI. ROS Other: All systems not noted in ROS Statement are negative. Past Medical History Past Medical History: Asthma Additional Past Medical History / Comment(s): migraines, MS History of Any Multi-Drug Resistant Organisms: None Reported Past Surgical History: Orthopedic Surgery Past Anesthesia/Blood Transfusion Reactions: No Reported Reaction Past Psychological History: Depression Smoking Status: Current every day smoker, Vaper Past Alcohol Use History: None Reported Past Drug Use History: None Reported - Past Family History Mother Family Medical History: Hypertension Father Family Medical History: Hypertension General Exam General appearance: alert, in no apparent distress Head exam: Present: atraumatic, normocephalic, normal inspection Eye exam: Present: normal appearance, PERRL, EOMI. Absent: scleral icterus, conjunctival injection, periorbital swelling ENT exam: Present: normal exam, mucous membranes moist Neck exam: Present: normal inspection. Absent: tenderness, meningismus, lymphadenopathy Respiratory exam: Present: normal lung sounds bilaterally. Absent: respiratory distress, wheezes, rales, rhonchi, stridor Cardiovascular Exam: Present: regular rate, normal rhythm, normal heart sounds. Absent: systolic murmur, diastolic murmur, rubs, gallop, clicks GI/Abdominal exam: Present: soft, normal bowel sounds. Absent: distended, tenderness, guarding, rebound, rigid Extremities exam: Present: normal inspection, full ROM, normal capillary refill. Absent: tenderness, pedal edema, joint swelling, calf tenderness Back exam: Present: normal inspection Neurological exam: Present: alert, oriented X3, CN II-XII intact Psychiatric exam: Present: normal affect, normal mood Skin exam: Present: warm, dry, intact, normal color. Absent: rash Course Vital Signs 11/23/22 11/23/22 12:12 16:30 Temperature 97.7 F 97.8 F Pulse Rate 85 75 Respiratory 16 18 Rate Blood Pressure 102/70 97/58 O2 Sat by Pulse 96 99 Oximetry - Reevaluation(s) Reevaluation #1: 11/23/22 15:07 Pt re-evaluated. Migraine cocktail helped with her headache. Reevaluation #2: 11/23/22 16:11 Reevaluated. I discussed the results with the patient, patient verbalized understanding is agreeable with plan for discharge with recommended follow up with neurologist Medical Decision Making - Medical Decision Making Was pt. sent in by a medical professional or institution (, PA, BODY TECHNICIAN/PAINTER, urgent care, hospital, or care home...) When possible be specific @ -[No] Did you speak to anyone other than the patient for history (EMS, parent, family, police, friend...)? What history was obtained from this source @ -[No] Did you review nursing and triage notes (agree or disagree)? Why? @ -[I reviewed and agree with nursing and triage notes] Were old charts reviewed (outside hosp., previous admission, EMS record, old EKG, old radiological studies, urgent care reports/EKG's, care home records)? Report findings @ -[No old charts were reviewed] Differential Diagnosis (chest pain, altered mental status, abdominal pain women, abdominal pain men, vaginal bleeding, weakness, fever, dyspnea, syncope, headache, dizziness, GI bleed, back pain, seizure, CVA, palpatations, mental health)? @ -[not applicable] EKG interpreted by me (3pts min.). @ -[As above] X-rays interpreted by me (1pt min.). @ -[None done] CT interpreted by me (1pt min.). @ -[None done] U/S interpreted by me (1pt. min.). @ -[None done] What testing was considered but not performed or refused? (CT, X-rays, U/S, lab s)? Why? @ -[None] What meds were considered but not given or refused? Why? @ -[None] Did you discuss the management of the patient with other professionals (professionals i.e. , PA, BODY TECHNICIAN/PAINTER, lab, RT, psych nurse, social worker clinical, varnisher apprentice, teacher, flight communications officer, case specialist)? Give summary @ -[No] Was smoking cessation discussed for >3mins.? @ -[No] Was critical care preformed (if so, how long)? @ -[No] Were there social determinants of health that impacted care today? How? (Homelessness, low income, unemployed, alcoholism, drug addiction, transportation, low edu. Level, literacy, decrease access to med. care, residential, rehab)? @ -[No] Was there de-escalation of care discussed even if they declined (Discuss DNR or withdrawal of care, Hospice)? DNR status @ -[No] What co-morbidities impacted this encounter? (DM, HTN, Smoking, COPD, CAD, Cancer, CVA, ARF, Chemo, Hep., AIDS, mental health diagnosis, sleep apnea, morbid obesity)? @ -[None] Was patient admitted / discharged? Hospital course, mention meds given and route, prescriptions, significant lab abnormalities, going to OR and other per tinent info. @ -37-year-old female presents to the emergency department for headache. Patient had history and physical performed, physical exam is essentially unremarkable . Patient had lab work and imaging ordered and performed while in the emergency department, workup is essentially unremarkable. I discussed the results in detail with the patient, all questions and concerns were addressed. Patient is agreeable with the plan for discharge. The patient was discharged in stable condition with recommended close follow-up with primary care in 1-2 days. sHe was given a referral for Dr. Stone, Neurologist. SHe was given toradol, compazine, and benadryl with symptomatic relief while in the emergency department. Return precautions were discussed. I discussed the case with Dr. Nilam MORROW who agrees with the plan of care. Undiagnosed new problem with uncertain prognosis? @ -[No] Drug Therapy requiring intensive monitoring for toxicity (Heparin, Nitro, Insulin, Cardizem)? @ -[No] Were any procedures done? @ -[No] Diagnosis/symptom? @ -migraine Acute, or Chronic, or Acute on Chronic? @ -acute Uncomplicated (without systemic symptoms) or Complicated (systemic symptoms)? @ -[default] Side effects of treatment? @ -[No] Exacerbation, Progression, or Severe Exacerbation? @ -[No] Poses a threat to life or bodily function? How? (Chest pain, [place], [place], pneumonia, PE, COPD, DKA, ARF, appy, cholecystitis, CVA, Diverticulitis, Homicidal, S uicidal, threat to staff... and all critical care pts) @ -[No] - Lab Data Result diagrams: 11/23/22 14:24 11/23/22 14:24 Lab Results 11/23/22 11/23/22 Range/Units 14:24 14:24 WBC 6.9 (3.8-10.6) k/uL RBC 3.66 L (3.80-5.40) m/uL Hgb 12.1 (11.4-16.0) gm/dL Hct 35.5 (34.0-46.0) % MCV 97.0 (80.0-100.0) fL MCH 32.9 (25.0-35.0) pg MCHC 33.9 (31.0-37.0) g/dL RDW 12.8 (11.5-15.5) % Plt Count 169 (150-450) k/uL MPV 9.0 Neutrophils % 56 % Lymphocytes % 33 % Monocytes % 5 % Eosinophils % 3 % Basophils % 1 % Neutrophils # 3.9 (1.3-7.7) k/uL Lymphocytes # 2.3 (1.0-4.8) k/uL Monocytes # 0.3 (0-1.0) k/uL Eosinophils # 0.2 (0-0.7) k/uL Basophils # 0.1 (0-0.2) k/uL Sodium 138 (137-145) mmol/L Potassium 4.1 (3.5-5.1) mmol/L Chloride 109 H (98-107) mmol/L Carbon Dioxide 25 (22-30) mmol/L Anion Gap 4 mmol/L BUN 13 (7-17) mg/dL Creatinine 0.59 (0.52-1.04) mg/dL Est GFR (CKD-EPI)AfAm >90 (>60 ml/min/1.73 sqM) Est GFR (CKD-EPI)NonAf >90 (>60 ml/min/1.73 sqM) Glucose 87 (74-99) mg/dL Calcium 8.4 (8.4-10.2) mg/dL Disposition Clinical Impression: Migraine Disposition: HOME SELF-CARE Condition: Stable Instructions (If sedation given, give patient instructions): Acute Headache (ED) Additional Instructions: Please return to the nearest emergency department if worsening headache, vision changes, dizziness, nausea vomiting persists. Is patient prescribed a controlled substance at d/c from ED?: No Referrals: Sophie Garcia MD [Primary Care Provider] - 1-2 days Grayson Valdez MD [STAFF PHYSICIAN] - 1-2 days Time of Disposition: 16:12
[2022-11-23 16:31] VITALS: BP 97/58; PULSE 75; RESP 18; TEMP 97.8
== END 2022-11-23 16:34 | disposition home or self-care (01) ==
LOC: EC 11:50
DX: G43.909 Migraine, unspecified, not intractable, without status migrainosus (principal); J45.909 Unspecified asthma, uncomplicated; F32.A Depression, unspecified; F17.290 Nicotine dependence, other tobacco product, uncomplicated; Z79.82 Long term (current) use of aspirin; Z79.899 Other long term (current) drug therapy
CPT/HCPCS: 36415; 80048; 85025; 99284; 96374; 96375 ×2; 96361; J1200; J0780; J1885

== ENCOUNTER → 2023-01-31 | Outpatient (CLI) | payer BC, OTHER ==
--- NOTE | 2023-01-31 11:46 | FL ---
Modified barium swallow. Consistencies administered: Thin, pudding, and cracker consistencies. Fluoro time: 1 minute 5 seconds No evidence for laryngeal penetration or tracheal aspiration. Premature spill with thin consistency. No images were sent to PACS. Please see speech pathology report.
--- NOTE | 2023-01-31 11:53 | CT ---
EXAMINATION TYPE: CT soft tissue neck w con CT DLP: 271.1 mGycm, Automated exposure control for dose reduction was used. DATE OF EXAM: 01/31/2023 11:16 AM COMPARISON: CTA chest 11/10/2022, CT brain 11/10/2022. CLINICAL INDICATION:Female, 37 years old with history of J38.1 R13.10; PHH, dysphagia TECHNIQUE: Standard enhanced CT of the neck following intravenous administration of 70 cc of Isovue 3 00. Axial sections with coronal and sagittal reformats were obtained. FINDINGS: Brain: Visualized portions are grossly unremarkable. Orbits: Unremarkable Sinuses: Grossly unremarkable. Suprahyoid Neck: The oropharynx, oral cavity, parapharyngeal and retropharyngeal spaces are clear and symmetric. The nasopharynx is unremarkable. Infrahyoid Neck: The larynx, hypopharynx, and supraglottic area are clear and symmetric. Parotid Glands: Unremarkable. Submandibular Glands: Unremarkable. Musculoskeletal: No acute osseous pathology. No aggressive osseous lesion. Lymph nodes: No pathologically enlarged cervical lymph nodes identified.. Vascular structures: Visualized major arteries are patent without evidence of aneurysm. Thoracic Inlet/airway: Airway is patent. The lung apices are clear. Soft tissues/Thyroid: Thyroid and remainder of the soft tissues are unremarkable. Other: none. IMPRESSION Unremarkable CT neck exam.
== END | disposition home or self-care (01) ==
LOC: RADCTMAIN 10:55
PROVIDERS: ATTEND Otolaryngology
DX: R13.10 Dysphagia, unspecified (principal); J38.1 Polyp of vocal cord and larynx
CPT/HCPCS: 92611; 74230; 70491; Q9967

== ENCOUNTER 2024-03-21 14:10 | Emergency (ER) | payer BC, OTHER ==
[2024-03-21 15:10] VITALS: RESP 16; TEMP 98.4
--- NOTE | 2024-03-21 15:11 | ED ---
Abdominal Pain HPI - General Source: patient, RN notes reviewed Mode of arrival: ambulatory Limitations: no limitations <Bran Alvarado - Last Filed: 03/21/24 15:10> - General Source: RN notes reviewed <Dali Marquez - Last Filed: 03/21/24 21:52> <Crissy Brunner - Last Filed: 03/22/24 12:42> - General Chief Complaint: Abdominal Pain Stated Complaint: pelvic pain/L leg pain Time Seen by Provider: 03/21/24 14:25 - History of Present Illness Initial Comments: Quick [id number] female presents emergency department complaint of abdominal pain she states it is more on the left side flank pain she states that she has chronic constipation which she has states softeners or laxatives twice weekly to goal with she states that she does have some hesitancy when she urinates has to push when she urinates states it hurts she had no change in this pain after bowel movement. No chest pain no shortness of breath. No history of kidney stones (Bran Alvarado) 38-year-old female presenting to the ER with chief complaint of lower abdominal pain x 1 day. States this began this morning and felt like menstrual cramps. States pain has worsened and is now a sharp pain in her bilateral pelvic area that is worse with urination. Describes sensation of having to push to urinate. States pain is more so on the left side. States last menstrual period was 3 weeks ago. States she has a history of constipation however had a bowel movement today and continues to have pain. Denies fever, vomiting. (Dali Marquez) - Related Data Home Medications Medication Instructions Recorded Confirmed Ascorbic Acid [Vitamin C] 500 mg PO DAILY 11/10/22 11/23/22 Aspirin EC [Ecotrin Low Dose] 81 mg PO DAILY 11/10/22 11/23/22 Baclofen 5 mg PO HS 11/10/22 11/23/22 Citalopram Hydrobromide [CeleXA] 20 mg PO DAILY 11/10/22 11/23/22 Loratadine 10 mg PO DAILY PRN 11/10/22 11/23/22 Melatonin 5 mg PO HS PRN 11/10/22 11/23/22 bisacodyL [Dulcolax] 20 mg PO DAILY PRN 11/10/22 11/23/22 busPIRone HCl [Buspar] 5 mg PO BID 11/10/22 11/23/22 Allergies Allergy/AdvReac Type Severity Reaction Status Date / Time No Known Allergies Allergy Verified 03/21/24 14:28 Review of Systems ROS Other: All systems not noted in ROS Statement are negative. <TraceyBran bella - Last Filed: 03/21/24 15:10> ROS Other: All systems not noted in ROS Statement are negative. <Dali Marquez - Last Filed: 03/21/24 21:52> ROS Other: All systems not noted in ROS Statement are negative. <Crissy Brunner - Last Filed: 03/22/24 12:42> ROS Statement: Those systems with pertinent positive or pertinent negative responses have been documented in the HPI. Past Medical History Past Medical History: Asthma Additional Past Medical History / Comment(s): migraines, MS History of Any Multi-Drug Resistant Organisms: None Reported Past Surgical History: Orthopedic Surgery Past Anesthesia/Blood Transfusion Reactions: No Reported Reaction Past Psychological History: Depression Smoking Status: Current every day smoker, Vaper Past Alcohol Use History: None Reported Past Drug Use History: None Reported - Past Family History Mother Family Medical History: Hypertension Father Family Medical History: Hypertension <TraceyBran bella - Last Filed: 03/21/24 15:10> General Exam Limitations: no limitations <Bran Alvarado - Last Filed: 03/21/24 15:10> General appearance: alert, in no apparent distress Respiratory exam: Present: normal lung sounds bilaterally. Absent: respiratory distress, wheezes, rales, rhonchi, stridor Cardiovascular Exam: Present: regular rate, normal rhythm, normal heart sounds. Absent: systolic murmur, diastolic murmur, rubs, gallop, clicks GI/Abdominal exam: Present: soft, normal bowel sounds. Absent: distended, tenderness, guarding, rebound, rigid Back exam: Absent: CVA tenderness (R), CVA tenderness (L) Psychiatric exam: Present: normal affect, normal mood Skin exam: Present: warm, dry, intact, normal color. Absent: rash <Dali Marquez - Last Filed: 03/21/24 21:52> - General Exam Comments Initial Comments: Visual Physical Exam Vital signs reviewed General: Well-appearing, nontoxic, no acute distress. Head: Normocephalic, atraumatic Eyes: PERRLA, EOMI ENT: Airway patent Chest: Nonlabored breathing Skin: No visual rash, normal skin tone Neuro: Alert and oriented 3 Musculoskeletal: No gross abnormalities (Bran Alvarado) Course Vital Signs 03/21/24 03/21/24 14:25 20:36 Temperature 98.4 F Pulse Rate 92 80 Respiratory 16 16 Rate Blood Pressure 116/76 114/77 O2 Sat by Pulse 99 96 Oximetry Medical Decision Making <Bran Alvarado - Last Filed: 03/21/24 15:10> - Lab Data Result diagrams: 03/21/24 16:17 03/21/24 16:17 <Dali Marquez - Last Filed: 03/21/24 21:52> - Lab Data Result diagrams: 03/21/24 16:17 03/21/24 16:17 <Crissy Brunner - Last Filed: 03/22/24 12:42> - Medical Decision Making I completed the quick note portion of this chart signed Bran Alvarado PA-C (Bran Alvarado) Was pt. sent in by a medical professional or institution (SHIKHA Mello, SURGICAL INSTRUMENT REPAIR SPECIALIST, urgent care, hospital, or intermediate...) When possible be specific @ -No Did you speak to anyone other than the patient for history (EMS, parent, family, police, friend...)? What history was obtained from this source @ -No Did you review nursing and triage notes (agree or disagree)? Why? @ -I reviewed and agree with nursing and triage notes Were old charts reviewed (outside hosp., previous admission, EMS record, old EKG, old radiological studies, urgent care reports/EKG's, intermediate records)? Report findings @ -No old charts were reviewed Differential Diagnosis (chest pain, altered mental status, abdominal pain women, abdominal pain men, vaginal bleeding, weakness, fever, dyspnea, syncope, headache, dizziness, GI bleed, back pain, seizure, CVA, palpatations, mental health, musculoskeletal)? @ -Differential Abdominal Pain Women: Appendicitis, Cholecystitis, diverticulosis, ischemic bowel, pancreatitis, hepatitis, UTI, gastroenteritis, AAA, incarcerated hernia, bowel obstruction, constipation, inflammatory bowel, hepatitis, peptic ulcer disease, splenic infarction, perforated viscus, vulvitis, ovarian torsion, PID, kidney stone, placenta abruption, this is not meant to be an all-inclusive list EKG interpreted by me (3pts min.). @ -None X-rays interpreted by me (1pt min.). @ -None done CT interpreted by me (1pt min.). @ -None done U/S interpreted by me (1pt. min.). @ -Ultrasound of the pelvis revealed left-sided hemorrhagic cyst measuring 5 cm with decreased left-sided blood flow What testing was considered but not performed or refused? (CT, X-rays, U/S, labs)? Why? @ -None What meds were considered but not given or refused? Why? @ -None Did you discuss the management of the patient with other professionals ( professionals i.e. , PA, SURGICAL INSTRUMENT REPAIR SPECIALIST, lab, RT, psych nurse, certified social workers in health care, estimating manager, teacher, chief communications officer, case finisher)? Give summary @ -Case was discussed with Dr. Edgard VANESSA. Patient's symptom presentation as well as lab work and ultrasound results were discussed. Dr. Rene recommended outpatient follow-up at this time as there is no current ovarian torsion present, patient is hemodynamically stable, tolerating orals well, and patient's pain is controlled. Ultrasound results were discussed directly with community planning technician and Dr. Wen. Was smoking cessation discussed for >3mins.? @ -No Was critical care preformed (if so, how long)? @ -No Were there social determinants of health that impacted care today? How? (Homelessness, low income, unemployed, alcoholism, drug addiction, transp ortation, low edu. Level, literacy, decrease access to med. care, half-way, rehab)? @ -No Was there de-escalation of care discussed even if they declined (Discuss DNR or withdrawal of care, Hospice)? DNR status @ -No What co-morbidities impacted this encounter? (DM, HTN, Smoking, COPD, CAD, Cancer, CVA, ARF, Chemo, Hep., AIDS, mental health diagnosis, sleep apnea, morbid obesity)? @ -None Was patient admitted / discharged? Hospital course, mention meds given and route, prescriptions, significant lab abnormalities, going to OR and other pertinent info. @ -Patient was discharged. Patient was seen and evaluated for left-sided pelvic pain x 1 day. She is tolerating orals well and pain is controlled with ibuprofen. Vitals are within normal limits. Pelvic ultrasound revealed left- sided hemorrhagic cyst measuring 5 cm with decreased left-sided blood flow compared to right side. Lab work was unremarkable and urine negative for blood, protein, and white blood cells. Ultrasound results were clarified with community planning technician as well as Dr. Wen. CROCODILE FARMER Dr. Rene was contacted regarding this case, case and ultrasound results discussed, and the recommendation was made for patient to be discharged with outpatient follow-up. Discussed diagnosis of ovarian cyst with patient in detail. Strict return/alarm symptoms discussed with patient in detail and patient shows understanding and agrees to plan. Given MANAGER OUTPATIENT follow-up. Prescribed Toradol for pain control. Patient discharged in stable condition. Case discussed with Dr. Brunner. Undiagnosed new problem with uncertain prognosis? @ -No Drug Therapy requiring intensive monitoring for toxicity (Heparin, Nitro, Insulin, Cardizem)? @ -No Were any procedures done? @ -No Diagnosis/symptom? @ -Left-sided ovarian cyst Acute, or Chronic, or Acute on Chronic? @ -Acute Uncomplicated (without systemic symptoms) or Complicated (systemic symptoms)? @ -Uncomplicated Side effects of treatment? @ -No Exacerbation, Progression, or Severe Exacerbation? @ -No Poses a threat to life or bodily function? How? (Chest pain, USA, NM, pneumonia, PE, COPD, DKA, ARF, appy, cholecystitis, CVA, Diverticulitis, Homicidal, Suicidal, threat to staff... and all critical care pts) @ -No (Dali Marquez) Patient aware of close return parameters. If patient has any worsening pain, must return to ED immediately for re-evaluation (Crissy Brunner) - Lab Data Lab Results 03/21/24 03/21/24 03/21/24 Range/Units 14:40 14:41 16:17 WBC 9.4 (3.8-10.6) k/uL RBC 4.18 (3.80-5.40) m/uL Hgb 13.1 (11.4-16.0) gm/dL Hct 40.0 (34.0-46.0) % MCV 95.8 (80.0-100.0) fL MCH 31.3 (25.0-35.0) pg MCHC 32.6 (31.0-37.0) g/dL RDW 13.6 (11.5-15.5) % Plt Count 187 (150-450) k/uL MPV 8.6 Neutrophils % 56 % Lymphocytes % 35 % Monocytes % 5 % Eosinophils % 2 % Basophils % 1 % Neutrophils # 5.3 (1.3-7.7) k/uL Lymphocytes # 3.3 (1.0-4.8) k/uL Monocytes # 0.4 (0-1.0) k/uL Eosinophils # 0.1 (0-0.7) k/uL Basophils # 0.1 (0-0.2) k/uL Sodium (137-145) mmol/L Potassium (3.5-5.1) mmol/L Chloride (98-107) mmol/L Carbon Dioxide (22-30) mmol/L Anion Gap mmol/L BUN (7-17) mg/dL Creatinine (0.52-1.04) mg/dL Est GFR (CKD-EPI)AfAm (>60 ml/min/1.73 sqM) Est GFR (CKD-EPI)NonAf (>60 ml/min/1.73 sqM) Glucose (74-99) mg/dL Plasma Lactic Acid Shaji (0.7-2.0) mmol/L Calcium (8.4-10.2) mg/dL Total Bilirubin (0.2-1.3) mg/dL AST (14-36) U/L ALT (4-34) U/L Alkaline Phosphatase (38-126) U/L Total Protein (6.3-8.2) g/dL Albumin (3.5-5.0) g/dL Lipase (23-300) U/L Urine Color Colorless Urine Appearance Clear (Clear) Urine pH 6.5 (5.0-8.0) Ur Specific [place] 1.008 (1.001-1.035) Urine Protein Negative (Negative) Urine Glucose (UA) Negative (Negative) Urine Ketones 1+ H (Negative) Urine Blood Negative (Negative) Urine Nitrite Negative (Negative) Urine Bilirubin Negative (Negative) Urine Urobilinogen <2.0 (<2.0) mg/dL Ur Leukocyte Esterase Negative (Negative) Urine HCG, Qual Not Detected (Not Detectd) 03/21/24 03/21/24 Range/Units 16:17 16:17 WBC (3.8-10.6) k/uL RBC (3.80-5.40) m/uL Hgb (11.4-16.0) gm/dL Hct (34.0-46.0) % MCV (80.0-100.0) fL MCH (25.0-35.0) pg MCHC (31.0-37.0) g/dL RDW (11.5-15.5) % Plt Count (150-450) k/uL MPV Neutrophils % % Lymphocytes % % Monocytes % % Eosinophils % % Basophils % % Neutrophils # (1.3-7.7) k/uL Lymphocytes # (1.0-4.8) k/uL Monocytes # (0-1.0) k/uL Eosinophils # (0-0.7) k/uL Basophils # (0-0.2) k/uL Sodium 134 L (137-145) mmol/L Potassium 4.2 (3.5-5.1) mmol/L Chloride 105 (98-107) mmol/L Carbon Dioxide 28 (22-30) mmol/L Anion Gap 1 mmol/L BUN 9 (7-17) mg/dL Creatinine 0.60 (0.52-1.04) mg/dL Est GFR (CKD-EPI)AfAm >90 (>60 ml/min/1.73 sqM) Est GFR (CKD-EPI)NonAf >90 (>60 ml/min/1.73 sqM) Glucose 90 (74-99) mg/dL Plasma Lactic Acid Shaji 0.5 L (0.7-2.0) mmol/L Calcium 9.2 (8.4-10.2) mg/dL Total Bilirubin 0.6 (0.2-1.3) mg/dL AST 24 (14-36) U/L ALT 14 (4-34) U/L Alkaline Phosphatase 53 (38-126) U/L Total Protein 6.8 (6.3-8.2) g/dL Albumin 4.1 (3.5-5.0) g/dL Lipase 42 (23-300) U/L Urine Color Urine Appearance (Clear) Urine pH (5.0-8.0) Ur Specific [place] (1.001-1.035) Urine Protein (Negative) Urine Glucose (UA) (Negative) Urine Ketones (Negative) Urine Blood (Negative) Urine Nitrite (Negative) Urine Bilirubin (Negative) Urine Urobilinogen (<2.0) mg/dL Ur Leukocyte Esterase (Negative) Urine HCG, Qual (Not Detectd) Disposition <Bran Alvarado - Last Filed: 03/21/24 15:10> Is patient prescribed a controlled substance at d/c from ED?: No Time of Disposition: 20:40 <Dali Marquez - Last Filed: 03/21/24 21:52> <Crissy Brunner - Last Filed: 03/22/24 12:42> Clinical Impression: Left ovarian cyst Disposition: HOME SELF-CARE Condition: Stable Instructions (If sedation given, give patient instructions): Ovarian Cyst (ED) Additional Instructions: Please follow-up with [facility] for repeat ultrasound in 3 to 6 weeks. Please return to the Emergency Department if symptoms worsen or any other concerns. Referrals: Sophie Garcia MD [Primary Care Provider] - 1-2 days Saud Rene MD [STAFF PHYSICIAN] - 1-2 days
[2024-03-21 15:22] LABS: Appearance,Urine Clear (Clear); Bilirubin,Urine Negative (Negative); Blood,Urine Negative (Negative); Color,Urine Colorless; Glucose,Urine (UA) Negative (Negative); Ketones,Urine 1+ (Negative); Leukocyte Esterase,Urine Negative (Negative); Nitrite,Urine Negative (Negative); PH, Urine 6.5 (5.0-8.0); Protein,Urine Negative (Negative); Specific Gravity,Urine 1.008 (1.001-1.035); Urobilinogen,Urine <2.0 mg/dL (<2.0)
[2024-03-21 16:31] LABS: Basophils # (A) 0.1 k/uL (0-0.2); Basophils % (A) 1 %; Eosinophils # (A) 0.1 k/uL (0-0.7); Eosinophils % (A) 2 %; HGB 13.1 gm/dL (11.4-16.0); Lymphocytes # (A) 3.3 k/uL (1.0-4.8); Lymphocytes % (A) 35 %; MCH 31.3 pg (25.0-35.0); MCHC 32.6 g/dL (31.0-37.0); MCV 95.8 fL (80.0-100.0); Mean Platelet Volume 8.6; Monocytes # (A) 0.4 k/uL (0-1.0); Monocytes % (A) 5 %; Neutrophils # (A) 5.3 k/uL (1.3-7.7); Neutrophils % (A) 56 %; Platelet Count 187 k/uL (150-450); RBC 4.18 m/uL (3.80-5.40); RDW 13.6 % (11.5-15.5); WBC 9.4 k/uL (3.8-10.6)
[2024-03-21 16:43] LABS: ALT 14 U/L (4-34); AST 24 U/L (14-36); African American GFR (CKD) >90 (>60 ml/min/1.73 sqM); Albumin 4.1 g/dL (3.5-5.0); Alkaline Phosphatase 53 U/L (38-126); Anion Gap 1 mmol/L; Blood Urea Nitrogen 9 mg/dL (7-17); Calcium 9.2 mg/dL (8.4-10.2); Carbon Dioxide 28 mmol/L (22-30); Chloride 105 mmol/L (98-107); Glucose 90 mg/dL (74-99); Lipase 42 U/L (23-300); Non-African American GFR(CKD) >90 (>60 ml/min/1.73 sqM); Potassium 4.2 mmol/L (3.5-5.1); Sodium 134 mmol/L (137-145); Total Bilirubin 0.6 mg/dL (0.2-1.3); Total Protein 6.8 g/dL (6.3-8.2)
--- NOTE | 2024-03-21 16:44 | XR ---
KUB. HISTORY: Abdominal pain. COMPARISON: None. TECHNIQUE: 2 upright views of the abdomen were obtained. FINDINGS: The lung bases are clear. There is no free intraperitoneal air beneath the diaphragm. The bowel gas pattern is nonspecific and there is no evidence of obstruction. No suspicious abdominal or pelvic calcifications are seen. The osseous structures are intact. IMPRESSION: Nonspecific abdomen without evidence of free air or obstruction.
[2024-03-21] MEDS: IBUPROFEN 600 MG TAB PO STA (17:05)
--- NOTE | 2024-03-21 18:51 | US ---
EXAMINATION TYPE: US pelvis complete transvag DATE OF EXAM: 03/21/2024 COMPARISON: NONE CLINICAL INDICATION: Female, 38 years old with history of pelvic pain; pelvic pain since last night. TECHNIQUE: . Transabdominal sonographic images of the pelvis were acquired. Transvaginal sonographi c images were medically necessary to better assess the following anatomy: Lt ovary Date of LMP: 3 weeks ago EXAM MEASUREMENTS: Uterus: 8.0 x 6.6 x 4.6 cm Endometrial Stripe: 1.3 cm Right Ovary: 4.1 x 1.8 x 2.1 cm Left Ovary: 5.3 x 5.1 x 6.9 cm 1. Uterus: Anteverted wnl 2. Endometrium: wnl 3. Right Ovary: wnl 4. Left Ovary: Appears heterogeneous. Complex area seen measuring 5.2 x 4.4 x 4.0cm. Flow does appea r less compared to the right. Only good blow flow is around the complex area. 5. Bilateral Adnexa: wnl 6. Posterior cul-de-sac: Free fluid seen IMPRESSION: Heterogenous appearance of the left ovary with complex areas identified possibly representing hemorrh agic cysts or underlying mass. There is appropriate arterial and venous spectral waveforms around thi s heterogenous region. Consider further evaluation with pelvic MRI pelvis with IV contrast.. Normal appearance of the right ovary.
[2024-03-21 20:46] VITALS: BP 114/77; PULSE 80
[2024-03-21] MEDS: ETODOLAC 400 MG TAB PO STA (20:57)
== END 2024-03-21 21:02 | disposition home or self-care (01) ==
LOC: EC 14:10
DX: N83.202 Unspecified ovarian cyst, left side (principal); F17.290 Nicotine dependence, other tobacco product, uncomplicated
CPT/HCPCS: 36415; 74018; 76830; 76856; 80053; 81003; 81025; 83605; 83690; 85025; 93975; 99284

== ENCOUNTER 2025-03-28 15:06 | Emergency (ER) | payer OTHER, BC ==
[2025-03-28 15:21] VITALS: TEMP 97.8
[2025-03-28] MEDS: ACETAMINOPHEN TAB 500 MG TAB PO STA (16:27)
[2025-03-28] MEDS: CYCLOBENZAPRINE 10 MG TAB PO STA (16:28)
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
[2025-03-28 18:08] VITALS: BP 110/55; PULSE 90; RESP 18
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
== END 2025-03-28 18:28 | disposition home or self-care (01) ==
LOC: EC 15:06
DX: M54.2 Cervicalgia (principal); F17.290 Nicotine dependence, other tobacco product, uncomplicated; Z87.39 Personal history of other diseases of the musculoskeletal system and connective tissue; V89.2XXA Person injured in unspecified motor-vehicle accident, traffic, initial encounter; Y92.410 Unspecified street and highway as the place of occurrence of the external cause
CPT/HCPCS: 72125; 99284